=== PATIENT | male | born 1980 | race Caucasian/White ===

== ENCOUNTER → 2017-07-26 17:33 | Outpatient (CLI) | payer OTHER, SELFPAY ==
--- NOTE | 2017-07-26 17:38 | CT_ITS ---
STUDY: CT CHEST WITHOUT CONTRAST REASON FOR EXAM: Male, 37 years old. Pulmonary nodule follow-up. RADIATION DOSAGE (If Supplied By Facility): CTDIvol = ( 19.11 ) mGy, DLP = ( 708.19 ) mGycm TECHNIQUE: Transaxial imaging was performed without the administration of intravenous contrast material. Individualized dose optimization techniques were used for this CT. COMPARISON: CT of the abdomen and pelvis 02/18/2017. FINDINGS: Normal lung volumes. Stable appearance of a 9 mm noncalcified nodule on the right lower lobe on image 162 with a few adjacent extremely tiny satellite nodules. Findings are still indeterminant. No other nodules infiltrates or acute abnormalities are found. No effusions. Normal heart and pericardium. Normal mediastinum. Normal hilar regions. Normal unenhanced pulmonary arteries. Normal aorta arch and descending thoracic aorta. Normal osseous structures. There is no demonstrated abnormality of the visualized upper abdomen. CT/Chest without Contrast IMPRESSION: Stable indeterminate nodule in the right lower lobe and otherwise normal chest CT. Suggest follow-up in 6 months. Electronically Signed: Spenser Brewer MD at 10:29 EDT , Service support ,
== END ==
PROVIDERS: Family Provider Family Medicine; PCP Family Medicine; Visit Provider Family Medicine
DX: R91.1 Solitary pulmonary nodule (principal)
CPT/HCPCS: 71250

== ENCOUNTER → 2018-03-18 17:40 | Outpatient (CLI) | payer OTHER, SELFPAY ==
--- NOTE | 2018-03-18 17:43 | CT_ITS ---
STUDY: CT CHEST WITHOUT CONTRAST REASON FOR EXAM: Male, 37 years old. Follow-up lung nodule RADIATION DOSAGE (If Supplied By Facility): CTDIvol = ( 18.76 ) mGy, DLP = ( 750.17 ) mGycm TECHNIQUE: Transaxial imaging was performed without the administration of intravenous contrast material. Individualized dose optimization techniques were used for this CT. COMPARISON: 07/26/[address], 02/18/[address] FINDINGS: Stable 8 x 7 mm nodule in the right lower lobe on image 82 of series 4. There is no demonstrated pleural abnormality. Normal heart and pericardium. Normal mediastinum. Normal hilar regions. Normal unenhanced pulmonary arteries. Normal aorta arch and descending thoracic aorta. Normal osseous structures. There is no demonstrated abnormality of the visualized upper abdomen. CT/Chest without Contrast IMPRESSION: Stable 8 mm nodule in the right lower lobe. Consider 12 month follow-up to ensure 2 years of stability. If 2 years of stability can be documented, no further follow-up would be necessary after that time. Electronically Signed: Marin Pittman MD at 4:04 EST Tel , Service support ,
== END ==
PROVIDERS: Family Provider Family Medicine; PCP Family Medicine; Referring Provider Family Medicine; Visit Provider Family Medicine
DX: R91.1 Solitary pulmonary nodule (principal)
CPT/HCPCS: 71250

== ENCOUNTER → 2019-03-25 08:43 | Outpatient (CLI) | payer OTHER, SELFPAY ==
--- NOTE | 2019-03-25 08:50 | CT_ITS ---
STUDY: CT CHEST WITHOUT CONTRAST REASON FOR EXAM: Male, 38 years old. Pulmonary nodule. RADIATION DOSAGE (If Supplied By Facility): CTDIvol = ( 18.17 ) mGy, DLP = ( 685.61 ) mGycm TECHNIQUE: Transaxial imaging was performed without the administration of intravenous contrast material. Multiplanar coronal and sagittal images were reformatted. Individualized dose optimization techniques were used for this CT. COMPARISON: None. FINDINGS: Redemonstrated is right lower lobe 8 mm pulmonary nodule, stable in size in the interval. No new nodules identified. Remainder of the lungs are normal. There is no demonstrated pleural abnormality. Normal heart and pericardium. Normal mediastinum. Normal hilar regions. Normal unenhanced pulmonary arteries. Normal aorta arch and descending thoracic aorta. Normal osseous structures. There is diffuse fatty liver. Otherwise there is no demonstrated abnormality of the visualized upper abdomen. CT/Chest without Contrast IMPRESSION: Stable right lower lobe pulmonary nodule, first identified on 02/18/2017. Given stability, no further follow-up recommended. Diffuse fatty liver. No acute cardiopulmonary process seen. Electronically Signed: Sabiha Hendrix MD at 4:59 EST , Service support ,
== END ==
PROVIDERS: Family Provider Family Medicine; PCP Family Medicine; Referring Provider Family Medicine; Visit Provider Family Medicine
DX: R91.1 Solitary pulmonary nodule (principal)
CPT/HCPCS: 71250

== ENCOUNTER 2019-10-18 15:59 | Inpatient (IN) | payer OTHER, SELFPAY ==
[2019-10-18] VITALS (12 sets, daily range): BP systolic 111–137; BP diastolic 54–78; PULSE 76–102; RESP 15–24; TEMP 36.7–38.4; O2SAT 93–97; BMI 40.0; BMI 39.2
--- NOTE | 2019-10-18 16:30 | EKG12_ITS ---
Test Reason : Blood Pressure : / mmHG Vent. Rate : 096 BPM Atrial Rate : 096 BPM P-R Int : 134 ms QRS Dur : 080 ms QT Int : 334 ms P-R-T Axes : 027 031 -05 degrees QTc Int : 421 ms Normal sinus rhythm Nonspecific T wave abnormality Abnormal ECG Confirmed by MAR BRAUN, TAMICA ([id number]), editorial manager OPAL MARIE ([id number]) on 10/23/2019 1:55:01 PM Referred By: IAN Confirmed By:ALEXY MANUEL MD
--- NOTE | 2019-10-18 16:36 | NURSING ---
NO OLD EKGS
--- NOTE | 2019-10-18 16:55 | RAD_ITS ---
STUDY: X-RAY CHEST REASON FOR EXAM: Male, 39 years old. LAST WEDNESDAY PT STARTED HAVING SOB, FEVER, CHILLS,LOSS OF SMELL AND TASTE, D/N/V. DX WITH COVID ON WEDNESDAY. NOW SYMPTOMS WORSE TECHNIQUE: Single AP portable view of the chest. COMPARISON: None. FINDINGS: Small irregular infiltrates are present in the bilateral lower lobes. There is no demonstrated pleural abnormality. Normal size heart. Normal mediastinum and ayla. Normal visualized pulmonary arteries. Normal visualized aortic arch and descending thoracic aorta. Normal visualized thoracic spine. Normal visualized ribs, clavicles, and shoulders. There is no demonstrated abnormality of the visualized soft tissue structures of the upper abdomen. RAD/Chest 1 View (Portable) IMPRESSION: Small irregular infiltrates in the bilateral lower lobes Electronically Signed: Orlando Tejada MD at 17:29 EDT , Service support ,
[2019-10-18 17:05] LABS: Absolute Lymphocyte Count 1.44 X10^3/uL (0.83-4.51); Absolute Neutrophil Count 3.6 X10^3/uL (2.0-7.7); Basophil# 0.01 X10^3/uL; Basophil% 0.2 % (0-1); Eosinophil# 0.01 X10^3/uL; Eosinophils% 0.2 % (0-5); Hemoglobin 15.1 g/dL (13.0-16.5); Lymphocyte # 1.44 X10^3/ul (4.0); Lymphocyte % 26.9 % (19-41); Mean Corp Hgb Conc 32.8 g/dL (32-36); Mean Corpuscular Hgb 28.4 pg (27.0-32.0); Mean Corpuscular Volume 86.6 fL (80-94); Monocyte# 0.29 X10^3/uL; Monocyte% 5.4 % (0-10); NRBC Flagged by Analyzer 0 % (0-5); Neutrophil # 3.58 X10^3/uL (2.7-7.7); Neutrophil % 66.9 % (47-70); POSITIVE MORPHOLOGY YES; Platelet Count 157 K/mm3 (150-450); RBC Distribution Width SD 40.7 fl (35.1-43.9); Red Blood Count 5.31 M/mm3 (4.6-6.2); White Blood Count 5.4 K/mm3 (4.4-11.0)
--- NOTE | 2019-10-18 17:05 | ED.VISSUMM ---
- ER Visit Summary Date of Service: 10/18/19 Chief Complaint: Shortness of breath History of Present Illness: The patient is a 39 M with increasing shortness of breath. Symptoms started 7 days ago. He tested positive for COVID-19 6 days ago. He reports increasing shortness of breath, fever, chills, decreased smell and taste, nausea, vomiting, and diarrhea. He has a history of hypertension and a prior history of smoking. Physical Examination: Afebrile and vital signs unremarkable except for heart rate of 102 and respiratory rate of 24. 95% on room air. Patient appears unwell but not toxic or in distress. He is alert and oriented, breathing on room air while wearing a mask. Heart is regular. No respiratory distress. Extremities nontender with no edema. Skin normal in color. Test Results: EKG shows sinus rhythm at a rate of 96 with no signs of ischemia or infarction pattern. Chest x-ray and labs are pending. Emergency Department Course and Treatment: Coronavirus precautions were maintained. The patient has an exacerbation of his COVID-19 illness. Work-up as above. He is not requiring oxygen. Will reassess. Patient's lab work was all fairly reassuring. His EKG was unremarkable. His x-ray showed bilateral lower lobe infiltrates. He ambulated and only dropped to 91% on room air, but appears very short of breath. I suspect that he will continue to worsen and may require oxygen soon. Will contact the hospitalist. Treatment Plan: As above Disposition: Admission Impression: COVID-19 infection Bilateral pneumonia This note was generated with [employer] dictation software. It may contain incorrect words, spelling, and punctuation that were not noted in review of the chart prior to signing ED Disposition - Plan for ED Patient: Referrals: Sebastien Laguerre DO [Primary Care Provider] -
[2019-10-18 17:07] LABS: Differential Indicated SCAN CRITERIA MET
[2019-10-18 17:19] LABS: Lactic Acid 1.6 mmol/L (0.4-1.9)
[2019-10-18 17:20] LABS: AST(SGOT) 32 U/L (15-37); Alanine Aminotransfer ALT/SGPT 65 U/L (16-61); Albumin, Serum 3.8 g/dL (3.2-5.0); Alkaline Phosphatase 56 U/L (45-117); Anion Gap 9 (5-15); BUN 14 mg/dL (7-18); BUN/Creat Ratio 14.2 RATIO (10-20); Calcium,Total 8.7 mg/dL (8.5-10.1); Chloride 102 mmol/L (98-107); Creatinine, Serum 0.98 mg/dL (0.70-1.30); EST Glomerular Filtration Rate 90 mL/min (>60); Est Glom Filt Rate - Afr Amer 109 mL/min (>60); Estimated Creatinine Clearance 104.49 ml/min; Globulin 3.9 g/dL (2.2-4.2); Glucose 108 mg/dL (74-106); Potassium 3.8 mmol/L (3.5-5.1); Protein, Total 7.7 g/dL (6.4-8.2); Prothrombin Time (Protime)PT. 12.3 SECONDS (11.7-14.9); Sodium Level 137 mmol/L (136-145)
[2019-10-18 17:21] LABS: Partial Thromboplast Time 29.4 Seconds (24.1-36.2)
[2019-10-18] MEDS: 0.9% Normal Saline 1,000 ML 999 ML IV (17:28)
[2019-10-18] MEDS: Ketorolac 15 MG/ML Vial IV (17:28)
[2019-10-18 17:51] LABS: Platelet Estimate ADEQUATE (ADEQ); Red Cell Morphology NORM C+C NORMAL (NORM C&C)
--- NOTE | 2019-10-18 18:14 | HP.PCM_ITS ---
History of Present Illness Date of Admission: 10/18/19 Chief Complaint: general malaise, COVID 19 infection The patient is a 39 year old M with past medical history of hypertension. He was admitted through the ED on 10/18/2019 with a complaint of generalized malaise, fever and cough as well as chills. Patient was recently diagnosed with COVID-19 infection and has been isolating at home. However he states he just feels he is getting worse with worsening generalized pain, fever, chills and coughing which is productive of clear sputum. He is also had some abdominal pain, diarrhea and vomiting. Review of symptoms otherwise negative. His symptoms were not improving so he decided to come into the ED. On review, vitals were significant for temperature of 101 Fahrenheit, blood pressure 121/68, pulse rate of 88 and respiratory to 15. Pulse ox was 94% on room air. Chemistry essentially unremarkable. CBC showed WBC of 5.4 with hemoglobin of 15.1 and platelets of 157. Chest x-ray showed small irregular infiltrates in the bilateral lower lobes. He has been admitted to be managed for COVID-19 infe ction. [] Past Medical History Allergies Penicillins Allergy (Verified 10/18/19 16:03) Rash Home Medications: Ambulatory Orders Medication Instructions Recorded Losartan Potassium [Cozaar] 50 mg PO DAILY 02/18/17 Acetaminophen [Tylenol Extra 500 - 1,000 mg PO Q6H PRN PRN 10/18/19 Strength] Albuterol Sulfate [Albuterol 2 puff IH Q6H PRN PRN 10/18/19 Sulfate HFA] Butalbit/Acetamin/Caff/Codeine 1 cap PO Q4H PRN PRN 10/18/19 [Fioricet-Cod 04-665-17-30 Cap] Ibuprofen [Advil] 600 - 800 mg PO DAILY PRN PRN 10/18/19 Psychiatric History: No pertinent psych hx Lives: With Family Smoking Status: Former smoker Alcohol: None Drugs: None - *Family History Maternal History Items: Heart Disease, Hypertension Paternal History Items: Heart Disease, Hypertension Review of Systems Constitutional: Reports: Anorexia, Chills, Fever, Malaise, Weakness, Fatigue. Denies: Weight Change Eyes: Denies: Blurred vision HEENT: Denies: Head Aches, Sinus Congestion, Sinus Drainage Cardiovascular: Denies: Chest Pain, Palpitations Respiratory: Reports: Cough, Shortness of Breath, Shortness of breath at rest, Shortness of breath upon exertion, Sputum production. Denies: Pleuritic Pain, Wheezing Gastrointestinal: Reports: Diarrhea, Nausea, Vomiting. Denies: Abdominal Pain Genitourinary: Denies: Dysuria Musculoskeletal: Denies: Joint Pain, Joint Tenderness Skin: Denies: Rash, Wounds Neurological: Denies: Numbness, Tingling, Focal weakness Psychiatric: Denies: Anxiety, Depression, Homicidal Ideations, Suicidal Ideations Hematologic/ Lymphatic: Denies: Easy Bruising, Easy Bleeding VTE Information - Inpt Only VTE Present on Admission: No VTE Pharm Prophylaxis ordered?: Yes - Physical Exam Vitals/I&O's: Vital Signs Temp Pulse Resp BP Pulse Ox 101.0 F H 89 21 H 121/68 H 95 10/18/19 17:32 10/18/19 17:30 10/18/19 17:30 10/18/19 17:30 10/18/19 17:30 Oxygen Delivery Method Room Air Weight: 279 lb 1.683 oz Body Mass Index (BMI) 40.0 General: Alert, Oriented x3, Cooperative, - - looks uncomfortable HEENT: Atraumatic, PERRLA, EOMI, Normocephalic Oral: Dry Mucosa Neck: Supple, No JVD, Negative Carotid Bruits Lungs: - - decreased breath sounds bibasally; few crackles in mid and lower lung aquino. Cardiovascular: Regular rate, Regular Rhythm, Normal S1, Normal S2, No murmurs Abdomen: Bowel Sounds Present, Soft, Non Tender Extremities: No clubbing, No cyanosis, No edema, Capillary Refill Less than 3 Seconds Skin: No rashes, No breakdown Musculoskeletal: No Tenderness to Palpation of Joints or Extremities Lymphatic: No Cervical, Supraclavicular, or Inguinal Adenopathy Neurological: Cranial nerves II-XII grossly intact, Neuro grossly intact, Motor Exam 5/5 strength throughout Psych/Mental Status: Restless, Alert and oriented to time, place, person, mood and affect Laboratory Results 10/18/19 16:00: Sodium 137, Potassium 3.8, Chloride 102, Carbon Dioxide 26.0, Anion Gap 9, BUN 14, Creatinine 0.98, Estim Creat Clear Calc 104.49, Est GFR (MDRD) Af Amer 109, Est GFR (MDRD) Non-Af 90, BUN/Creatinine Ratio 14.2, Glucose 108 H, Calcium 8.7, Total Bilirubin 0.90, AST 32, ALT 65 H, Alkaline Phosphatase 56, Troponin I < 0.015, Total Protein 7.7, Albumin 3.8, Globulin 3.9, Albumin/Globulin Ratio 1.0 10/18/19 16:00: WBC 5.4, RBC 5.31, Hgb 15.1, Hct 46.0, MCV 86.6, MCH 28.4, MCHC 32.8, RDW Std Deviation 40.7, RDW Coeff of Paulette 13.0, Plt Count 157, MPV 11.0, Immature Gran % (Auto) 0.400, Neut % (Auto) 66.9, Lymph % (Auto) 26.9, Wheeler % (Auto) 5.4, Eos % (Auto) 0.2, Baso % (Auto) 0.2, Absolute Neuts (auto) 3.6, Absolute Lymphs (auto) 1.44, Nucleated RBC % 0, Platelet Estimate ADEQUATE, RBC Morphology NORM C+C 10/18/19 16:00: PT 12.3, INR 1.0, APTT 29.4 10/18/19 16:00: Lactic Acid 1.6 Diagnostic Data Chest X-Ray 10/18/19 16:55 IMPRESSION: Small irregular infiltrates in the bilateral lower lobes Electronically Signed: Orlando Tejada MD at 17:29 EDT , Service support , Assessment/Plan 39-year-old female admitted with a complaint of generalized malaise. 1. Acute COVID 19 infection * Admit to COVID unit. * He was diagnosed with COVID-19 on 10/12/2019. Has more generalized malaise. * hydrate with IVF, tylenol prn for pain * lactic acid was not elevated * CXR showed small irregular infiltrates in the bilateral lower lobes * will hold off on antibiotics for now as he doesnt have any white cell count, and is not tachypneic; does have a fever but this is likely due to the viral infection. * * 2. Hypertension: on losartan DVT prophylaxis: lovenox 40mg bid; D dimer ordered, if elevated, will fully anticoagulate as needed. Code status: full code * Patient counseled extensively about different types of CODE STATUS including full code, DNR CCA and DNR CCA. Patient elects to be full code. Total [id number] time 16 minutes. Inpatient E&M: 59855 Init Hosp L3
[2019-10-18 21:19] LABS: D-Dimer Quantitative (DVT/PE) 0.55 FEU/ug/m (0.27-0.49)
[2019-10-18] MEDS: 0.9% Normal Saline 1,000 ML 150 ML IV (21:42)
[2019-10-18] MEDS: Acetaminophen/Butalbital/Caffe 1 Tablet PO (21:42)
[2019-10-18] MEDS: Ibuprofen 600 MG Tablet PO (21:42)
[2019-10-18] MEDS: Enoxaparin 40 MG/0.4 ML Syringe SC (21:44)
[2019-10-19 03:04] VITALS: PULSE 62
[2019-10-19 03:36] VITALS: BP 101/73; PULSE 72; RESP 18; TEMP 36.6; O2SAT 94
[2019-10-19] MEDS: 0.9% Saline Lock 10 ML Syringe IV (03:37)
[2019-10-19] MEDS: Acetaminophen 500 MG Tablet PO (03:37)
[2019-10-19] MEDS: 0.9% Normal Saline 1,000 ML 150 ML IV (03:38)
[2019-10-19 04:02] LABS: Absolute Neutrophil Count 2.9 X10^3/uL (2.0-7.7); Basophil# 0.01 X10^3/uL; Basophil% 0.2 % (0-1); Hematocrit 42.4 % (40-54); Hemoglobin 13.9 g/dL (13.0-16.5); Lymphocyte % 38.5 % (19-41); Mean Corp Hgb Conc 32.8 g/dL (32-36); Mean Corpuscular Hgb 28.8 pg (27.0-32.0); Mean Platelet Vol. 10.8 fl (6.2-12.0); Monocyte# 0.25 X10^3/uL; Monocyte% 4.8 % (0-10); NRBC Flagged by Analyzer 0 % (0-5); Neutrophil # 2.91 X10^3/uL (2.7-7.7); Neutrophil % 56.1 % (47-70); Platelet Count 149 K/mm3 (150-450); RBC Distribution Width CV 13.2 % (11.6-14.6); RBC Distribution Width SD 42.5 fl (35.1-43.9); Red Blood Count 4.82 M/mm3 (4.6-6.2); White Blood Count 5.2 K/mm3 (4.4-11.0)
[2019-10-19 04:15] LABS: D-Dimer Quantitative (DVT/PE) 0.66 FEU/ug/m (0.27-0.49)
[2019-10-19 04:21] LABS: Alkaline Phosphatase 48 U/L (45-117); Anion Gap 9 (5-15); BUN 13 mg/dL (7-18); BUN/Creat Ratio 13.3 RATIO (10-20); Calcium,Total 8.1 mg/dL (8.5-10.1); Chloride 105 mmol/L (98-107); Creatinine, Serum 0.98 mg/dL (0.70-1.30); EST Glomerular Filtration Rate 91 mL/min (>60); Est Glom Filt Rate - Afr Amer 110 mL/min (>60); Estimated Creatinine Clearance 104.49 ml/min; Ferritin 1297 ng/mL (26-388); Glucose 99 mg/dL (74-106); Potassium 3.8 mmol/L (3.5-5.1); Sodium Level 140 mmol/L (136-145)
[2019-10-19 07:04] VITALS: PULSE 79
[2019-10-19 09:00] VITALS: O2SAT 96
[2019-10-19] MEDS: Losartan Potassium 50 MG Tablet PO (09:37)
[2019-10-19] MEDS: Enoxaparin 40 MG/0.4 ML Syringe SC (09:37)
[2019-10-19 09:44] VITALS: BP 159/99; PULSE 89; RESP 18; TEMP 37.8; O2SAT 95
[2019-10-19] MEDS: Acetaminophen/Butalbital/Caffe 1 Tablet PO (09:48)
[2019-10-19] MEDS: guaiFENesin 10 ML UDC (200MG/10ML) 20 ML PO (09:48)
--- NOTE | 2019-10-19 10:46 | CASEMGMT ---
RN CM Assessment Note- COVID Positive Introduced role of CM to patient via phone to room. Pt is awake alert and able to participate in assessment. Pt states he lives with his independently. She is self-isolating @ home. Pt states they have persons to assist with bring groceries, medications etc if needed to allow them to remain isolated. Will f/u with physicians via phone interviews. No concerns re: dc home @ this time. Diagnosis: COVID 19 infection PCP: Dr. Sebastien Laguerre Specialists: none Insurance: [employer] Preferred Pharmacy: [facility] Prescription Benefit: yes LNOK: Living Arrangements: Lives independently with his . No concerns on dc. Tranportation: drives DME: none Patient DC Goals: Home DC Plan: Home on dc. Pt will received COVID-19 dc instructions. Reviewed this will include self-isolation until cleared by his physician, and for pt to have someone pick and shovel worker his medications/groceries, etc until cleared to leave home. CM available for discharge planning coordination. Contact CM for any concerns/needs that may arise. Maura PERRYN RN ACM
--- NOTE | 2019-10-19 11:15 | DCINST_ITS ---
You will use the following diet at home:: No restrictions Your food should be the consistency of: Regular Call your doctor if you observe: Fever of 101 or Higher, Shortness of breath Additional Instructions: Self isolate at home until 10/24, as long as you are not having fevers. Around family, have you and them wear masks when interating. Minimize direct interaction as much as possible while ill. Allergies/Adverse Reactions: Allergies Penicillins Allergy (Verified 10/18/19 16:03) Rash Medications to take at Discharge Losartan Potassium [Cozaar] 50 mg PO DAILY 02/18/17 Acetaminophen [Tylenol] 500 - 1,000 mg PO Q6H PRN PRN 10/18/19 Albuterol Sulfate [Albuterol Sulfate HFA] 2 puff IH Q6H PRN PRN 10/18/19 Butalbit/Acetamin/Caff/Codeine [Fioricet-Cod 93-414-19-30 Cap] 1 cap PO Q4H PRN PRN 10/18/19 Ascorbic Acid [Vitamin C] 1,000 mg PO DAILY #1 tablet.er 10/19/19 Ibuprofen [Advil] 600 mg PO Q6H PRN #0 10/19/19 The following prescriptions were given: Ascorbic Acid [Vitamin C] 1,000 mg PO DAILY #1 tablet.er Primary Care Physician: Sebastien Laguerre DO [Primary Care Provider] - Within 2 Weeks Test Results: Test results from this visit will be discussed in further detail at your follow- up appointment, if applicable. Proposed Discharge Date: 10/19/19
--- NOTE | 2019-10-19 11:18 | DS.PCM_ITS ---
Discharge Date and Diagnosis Date of Admission: 10/18/19 Date of Discharge: 10/19/19 - Primary Discharge Diagnosis Acute Problems: COVID-19 Hospital Course and Treatment Imaging Results: Clinical Impression(s) from Imaging Studies Chest X-Ray 10/18/19 16:55 IMPRESSION: Small irregular infiltrates in the bilateral lower lobes Electronically Signed: Orlando Tejada MD at 17:29 EDT , Service support , Operations: None Procedures: None Summary of Care Provided: The patient is a 39 year old M presents with general malaise. Had been sick since 10 October. Where he has been diagnosed with COVID-19. Just was not feeling well and was still having fevers. Patient was brought into the hospital and monitored. Overnight, patient had no decline in his medical condition though he was having continued fevers. Discussed with the patient that his symptoms may last for weeks but medically he is stable for discharge as he is not declined whatsoever. Recommended taking acetaminophen and ibuprofen and alternating those. Told him that there is no treatment for mild to moderate illnesses such as this. Did state that he could take vitamin C which may not help but would not cause him any harm. Did advise him to minimize interaction with family and when he has to at home, to wear a mask and for them to wear a mask as well. Recommend patient isolate at home until the which would be 2 weeks after the initiation of his symptoms unless he is still sick. [] - Physical Exam Vitals/I&O's: Vital Signs Temp Pulse Resp BP Pulse Ox 37.8 C H 89 18 159/99 H 95 10/19/19 09:44 10/19/19 09:44 10/19/19 09:44 10/19/19 09:44 10/19/19 09:44 Oxygen Delivery Method Room Air Weight: 124 kg Body Mass Index (BMI) 39.2 Intake and Output for Last 24 Hours 10/17/19 10/18/19 10/19/19 23:59 23:59 23:59 Intake Total 1640 / 1640 2040.0 / 2040.0 Balance 1640 / 1640 2040.0 / 2040.0 General: Alert, No apparent distress HEENT: Atraumatic, Normocephalic Oral: Moist Mucosa, No Gingival or Mucosal Lesions/ Ulcerations Neck: No Nodes, Thyroid Normal Size and Texture Lungs: Clear to auscultation, Normal air movement, No rhonchi, No wheeze Cardiovascular: Regular rate, Regular Rhythm, Normal S1, Normal S2 Abdomen: Bowel Sounds Present, Soft, Non Tender, Non-Distended Extremities: No edema, No Calf Tenderness Psych/Mental Status: Normal Affect, Appropriate Laboratory Results 10/18/19 16:00: Sodium 137, Potassium 3.8, Chloride 102, Carbon Dioxide 26.0, Anion Gap 9, BUN 14, Creatinine 0.98, Estim Creat Clear Calc 104.49, Est GFR (MDRD) Af Amer 109, Est GFR (MDRD) Non-Af 90, BUN/Creatinine Ratio 14.2, Glucose 108 H, Calcium 8.7, Total Bilirubin 0.90, AST 32, ALT 65 H, Alkaline Phosphatase 56, Troponin I < 0.015, Total Protein 7.7, Albumin 3.8, Globulin 3.9, Albumin/Globulin Ratio 1.0 10/18/19 16:00: WBC 5.4, RBC 5.31, Hgb 15.1, Hct 46.0, MCV 86.6, MCH 28.4, MCHC 32.8, RDW Std Deviation 40.7, RDW Coeff of Paulette 13.0, Plt Count 157, MPV 11.0, Immature Gran % (Auto) 0.400, Neut % (Auto) 66.9, Lymph % (Auto) 26.9, Gonzales % (Auto) 5.4, Eos % (Auto) 0.2, Baso % (Auto) 0.2, Absolute Neuts (auto) 3.6, Absolute Lymphs (auto) 1.44, Nucleated RBC % 0, Platelet Estimate ADEQUATE, RBC Morphology NORM C+C 10/18/19 16:00: PT 12.3, INR 1.0, APTT 29.4 10/18/19 16:00: Lactic Acid 1.6 10/18/19 20:50: D-Dimer Quant (PE/DVT) 0.55 H* 10/19/19 03:50: WBC 5.2, RBC 4.82, Hgb 13.9, Hct 42.4, MCV 88.0, MCH 28.8, MCHC 32.8, RDW Std Deviation 42.5, RDW Coeff of Paulette 13.2, Plt Count 149 L, MPV 10.8, Immature Gran % (Auto) 0.400, Neut % (Auto) 56.1, Lymph % (Auto) 38.5, Gonzales % (Auto) 4.8, Eos % (Auto) 0.0, Baso % (Auto) 0.2, Absolute Neuts (auto) 2.9, Absolute Lymphs (auto) 2.00, Nucleated RBC % 0 10/19/19 03:50: Sodium 140, Potassium 3.8, Chloride 105, Carbon Dioxide 26.0, Anion Gap 9, BUN 13, Creatinine 0.98, Estim Creat Clear Calc 104.49, Est GFR (MDRD) Af Amer 110, Est GFR (MDRD) Non-Af 91, BUN/Creatinine Ratio 13.3, Glucose 99, Calcium 8.1 L, Ferritin 1297 H, Alkaline Phosphatase 48, Troponin I < 0.015, C-React Prot Ext Range 54.10 H 10/19/19 03:50: D-Dimer Quant (PE/DVT) 0.66 H* Current Medications Acetaminophen (Tylenol) 500 mg PO Q6H PRN PRN PRN Reason: Pain 1-10 or Fever Last Admin: 10/19/19 03:37 Dose: 500 mg Documented by: Acetaminophen/Butalbital/Caffeine (Fioricet) 1 tablet PO Q4H PRN PRN PRN Reason: HEADACHE Last Admin: 10/19/19 09:48 Dose: 1 tablet Documented by: Albuterol Sulfate (Ventolin Aerosols) 2.5 mg INHALATION Q2H PRN PRN PRN Reason: Shortness of Breath/Wheezing Dextrose (D50w Syringe) 0 gm IV X1 PRN; Protocol PRN Reason: Hypoglycemia Enoxaparin Sodium (Lovenox) 40 mg SC BID RONNY Last Admin: 10/19/19 09:37 Dose: 40 mg Documented by: Glucagon () 1 mg IM .X1 PRN PRN Reason: Hypoglycemia Guaifenesin (Robitussin) 20 ml PO Q4H PRN PRN PRN Reason: COUGH Last Admin: 10/19/19 09:48 Dose: 20 ml Documented by: Sodium Chloride () 250 mls @ 15 mls/hr IV .[id number] PRN PRN Reason: Saline Flush Sodium Chloride () 250 mls @ 15 mls/hr IV .[id number] PRN PRN Reason: Additional IVPB Infusion Ibuprofen (Motrin) 600 mg PO DAILY PRN PRN PRN Reason: Pain 1-10 or Fever Last Admin: 10/18/19 21:42 Dose: 600 mg Documented by: Losartan Potassium (Cozaar) 50 mg PO DAILY RONNY Last Admin: 10/19/19 09:37 Dose: 50 mg Documented by: Ondansetron HCl (Zofran) 4 mg IV Q8H PRN PRN PRN Reason: NAUSEA/VOMITING Sodium Chloride () 10 - 40 ml IV UD PRN PRN Reason: SALINE FLUSH Last Admin: 10/19/19 03:37 Dose: 20 ml Documented by: Discharge Diet: No Restrictions Discharge Activity: Return to Normal Activity Call your doctor if you observe: Fever of 101 or Higher, Shortness of breath Home Medications: Medications to take at Discharge Losartan Potassium [Cozaar] 50 mg PO DAILY 02/18/17 Acetaminophen [Tylenol] 500 - 1,000 mg PO Q6H PRN PRN 10/18/19 Albuterol Sulfate [Albuterol Sulfate HFA] 2 puff IH Q6H PRN PRN 10/18/19 Butalbit/Acetamin/Caff/Codeine [Fioricet-Cod 43-877-95-30 Cap] 1 cap PO Q4H PRN PRN 10/18/19 Ascorbic Acid [Vitamin C] 1,000 mg PO DAILY #1 tablet.er 10/19/19 Ibuprofen [Advil] 600 mg PO Q6H PRN #0 10/19/19 Following Prescrptions Were Given to Patient: Ascorbic Acid [Vitamin C] 1,000 mg PO DAILY #1 tablet.er Primary Care Physician: Sebastien Laguerre DO [Primary Care Provider] - Within 2 Weeks Disposition: Home Minutes spent on discharge:: 28 Patient Condition:: Good Medical Necessity - Tobacco Use Smoking Status: Former smoker Tobacco Use: Cigarettes Meaningful Use Info Meaningful Use Diagnoses (Choose all that apply): None applicable OBSV E&M: 73793 Observation care discharge
[2019-10-19 11:23] VITALS: TEMP 37.8
[2019-10-19] MEDS: Ibuprofen 600 MG Tablet PO (11:26)
--- NOTE | 2019-10-19 11:34 | NT.THERAPY_ITS ---
Nutrition Therapy Report - History Nutrition Services has been consulted to:: Manage nutrient details of diet order Current diet / nutrition support order:: cardiac/low cholesterol - Anthropometric Measurements Height:: 5 ft 10 in Weight:: 124 kg Body Mass Index (BMI):: 39.2 - Relevant Labs Relevant Labs:: Plt Count 149 K/mm3 (150-450) L 10/19/19 03:50 D-Dimer Quant (PE/DVT) 0.66 FEU/ug/m (0.27-0.49) H* 10/19/19 03:50 Glucose 108 mg/dL (74-106) H 10/18/19 16:00 Calcium 8.1 mg/dL (8.5-10.1) L 10/19/19 03:50 Ferritin 1297 ng/mL (26-388) H 10/19/19 03:50 ALT 65 U/L (16-61) H 10/18/19 16:00 C-React Prot Ext Range 54.10 mg/L (0.0-3.0) H 10/19/19 03:50 - Assessment Food / Nutrition-Related History:: Currently in isolation d/t COVID-19. Spoke w/ pt over phone. Pt reports poor PO intake and appetite x 1 week d/t COVID-19. States he had abd pain, diarrhea, and emesis [employer]. None since admission. UBW 295#. CBW 273.4#- 21.6#/7.3% wt loss x 1 week, significant for acute malnutrition. Describes poor PO intake this AM at breakfast. - Nutrition Diagnosis Problem / Etiology / Signs & Symptoms (PES):: Acute, severe malnutrition related to COVID-19 as evidenced by 21.6#/7.3% wt loss x 1 week, estimated PO intake <50% intake >5 days. Evidence of Malnutrition Exists:: Yes Severe PCM:: Acute Illness - Nutrition Intervention Nutrition Prescription:: 9570-3521 calories, 90-100 g protein/day - Food / Nutrient Delivery Interventions Summary of nutrition intervention:: Will change diet to regular d/t malnutriton, ensure enlive 120mL 3x/d w/ meals Nutrition support ordered as / adjusted to:: regular diet; ensure w/ meals Nutrition education provided?: No - MNT Monitoring Further MNT monitoring and evaluation required?: Yes MNT Follow-up in:: 3-5 days
[2019-10-19 11:36] VITALS: BMI 39.2
== END 2019-10-19 14:00 | disposition home or self-care (01) | DRG 179 ==
LOC: ED 16:19 → ICU 18:34
PROVIDERS: Admitting Provider Student in an Organized Health Care Education/Training Program; Emergency Provider Emergency Medicine; PCP Family Medicine
DX: U07.1 COVID-19 (principal); I10 Essential (primary) hypertension; Z88.0 Allergy status to penicillin; Z87.891 Personal history of nicotine dependence; Z79.899 Other long term (current) drug therapy
CPT/HCPCS: 71045; 80048; 80053; 82728; 83605; 84075; 84484; 85025; 85379; 85610; 85730; 86140; 87040; 93005; 97802; 99285; J7030; A4216

== ENCOUNTER 2021-08-22 22:17 | Emergency (ER) | payer OTHER, SELFPAY ==
[2021-08-22 22:18] VITALS: BP 141/96; PULSE 101; RESP 16; TEMP 36.4; O2SAT 95; BMI 40.1
[2021-08-22 22:36] LABS: Bedside Glucose 391 mg/dL (74-106)
--- NOTE | 2021-08-22 22:41 | EDS_ITS ---
HPI History of Present Illness Chief Complaint: Hyperglycemia Informant: patient Onset/Context/Timing Onset: Weeks (2) Context: Gradual Onset Timing: Continuous Quality: ppolyuria & polydipsia Current Severity: Moderate Maximum Severity: Moderate Worsened by: nothing Relieved by: nothing, I can't seem to drink enough fluids Associated Symptoms Associated Symptoms: none Narrative Narrative: Patient has been having urinary frequency and polydipsia for the last 2 weeks, diabetes runs in his family so his bought a blood sugar checking kit today and checked his blood sugar and it was around 515, they talk to a family member who advised that he come to the emergency department given that it is the weekend. He denies any other symptoms. He states he worked out in the yard today and had no problems. He has just been urinating a lot without any dysuria or hematuria or other systemic symptoms or abdominal pain, and trying to drink lots of fluids as a result of feeling very thirsty. No known history of diabetes. [facility] Medical History Hypertension Home Medications losartan [Cozaar] 50 mg PO DAILY 02/18/17 [History Last Taken 10/18/19] metformin 500 mg PO BID #60 tab 08/23/21 [Rx Last Taken Unknown] Allergy/AdvReac Type Severity Reaction Status Date / Time Penicillins Allergy Rash Verified 08/22/21 22:20 Social History Smoking Status: Former smoker ROS ROS ED Constitutional Constitutional ED: Denies chills or fever(s) Eyes Eyes: Denies change in vision or diplopia ENT ENT ED: Denies rhinorrhea or sore throat Cardiovascular Cardiovascular: Denies chest pain or palpitations Respiratory/Chest Respiratory/Chest: Denies cough or dyspnea Gastrointestinal Gastrointestinal: Denies abdominal pain, diarrhea, nausea or vomiting Genitourinary Genitourinary ED: Reports urinary frequency; Denies dysuria or hematuria Musculoskeletal Musculoskeletal: Denies back pain or neck pain Integumentary Denies abscess or rash Neurologic Neurologic: Denies headache(s), paresthesias or weakness Psychiatric Psychiatric: Denies anxiety or suicidal thoughts Endocrine Endocrinology: Reports as per HPI, polydipsia and polyuria; Denies cold intolerance, excessive sweating, flushing, heat intolerance or palpitations EXAM Physical Exam Const Vital Signs: 08/22/21 22:18 08/23/21 00:17 08/23/21 00:53 Temperature 97.6 F L Temperature Source Temporal Pulse Rate 101 H 90 Respiratory Rate 16 17 17 Blood Pressure 141/96 H 144/78 H Blood Pressure Mean 111 Pulse Ox 95 98 Oxygen Delivery Method Room Air Room Air Positive well nourished, well developed and obese General Appearance ED: well developed and NAD Nutritional Appearance: obese HEENT Reports moist mucous membranes normocephalic and atraumatic Eyes PERRL and EOMs intact bilaterally Neck full ROM and supple Resp normal respiratory effort and clear to auscultation bilaterally Cardio regular rate, regular rhythm and no murmurs Cardio Narrative: Borderline tachycardic with a heart rate around 100 GI non-tender and non-distended Auscultation: normoactive bowel sounds Palpation: soft Back/Spine no CVA tenderness General Back: other FROM Extremity normal to inspection General Extremety ED: Negative for edema, pulses abnormal or tenderness General Extremity: Negative for edema or pulses abnormal Neuro oriented x3, CN's II-XII intact bilaterally and no sensory deficits noted Sensorium / Orientation: awake and alert Motor Exam: strength 5/5 throughout Skin no rashes or lesions noted and no wounds MDM MDM MDM Narrative Medical decision making narrative: Patient was given a liter of fluid and initially lispro subcutaneous 8 units of insulin. Initially his blood sugar was 391, and after an hour or so this only came down to about 385. He was given more insulin in the IV, we did get his blood sugar to come down to the low 300s before it fully took effect. He was started on Metformin after discussing with his PCP and he will follow-up after the weekend. We will start him on 500 mg twice daily. Lab Data Attestation: I reviewed the patient's lab results. Labs: Laboratory Results - last 24 hr 08/22/21 08/22/21 08/22/21 22:27 22:32 22:32 WBC 6.4 RBC 5.87 Hgb 18.0 H* Hct 48.7 MCV 83.0 MCH 30.7 MCHC 37.0 H RDW Std Deviation 37.8 RDW Coeff of Paulette 12.5 Plt Count 234 MPV 11.5 Immature Gran % (Auto) 0.300 Neut % (Auto) 49.6 Lymph % (Auto) 39.2 [place] % (Auto) 8.1 Eos % (Auto) 1.7 Baso % (Auto) 1.1 H Absolute Neuts (auto) 3.2 Absolute Lymphs (auto) 2.51 Nucleated RBC % 0 Sodium Cancelled Potassium Cancelled Chloride Cancelled Carbon Dioxide Cancelled Anion Gap Cancelled BUN Cancelled Creatinine Cancelled Estim Creat Clear Calc Cancelled Est GFR (MDRD) Af Amer Cancelled Est GFR (MDRD) Non-Af Cancelled BUN/Creatinine Ratio Cancelled Glucose Cancelled Calcium Cancelled Urine Color Urine Clarity Urine pH Ur Specific [place] Urine Protein Urine Glucose (UA) Urine Ketones Urine Occult Blood Urine Nitrite Urine Bilirubin Urine Urobilinogen Ur Leukocyte Esterase Urine RBC Urine WBC Ur Squamous Epith Cells Urine Bacteria Urine Mucus POC Glucose 391 H 08/22/21 08/22/21 08/22/21 22:50 23:15 23:32 WBC RBC Hgb Hct MCV MCH MCHC RDW Std Deviation RDW Coeff of Paulette Plt Count MPV Immature Gran % (Auto) Neut % (Auto) Lymph % (Auto) [place] % (Auto) Eos % (Auto) Baso % (Auto) Absolute Neuts (auto) Absolute Lymphs (auto) Nucleated RBC % Sodium Cancelled 135 L Potassium Cancelled 4.2 Chloride Cancelled 100 Carbon Dioxide Cancelled 26.0 Anion Gap Cancelled 9 BUN Cancelled 16 Creatinine Cancelled 1.06 Estim Creat Clear Calc Cancelled 94.69 Est GFR (MDRD) Af Amer Cancelled 99 Est GFR (MDRD) Non-Af Cancelled 82 BUN/Creatinine Ratio Cancelled 15.1 Glucose Cancelled 439 H Calcium Cancelled 9.7 Urine Color Yellow Urine Clarity Clear Urine pH 5.0 Ur Specific [place] 1.015 Urine Protein 30 H Urine Glucose (UA) 1000 H Urine Ketones 50 H Urine Occult Blood 10 H Urine Nitrite Negative Urine Bilirubin Negative Urine Urobilinogen Normal Ur Leukocyte Esterase Negative Urine RBC 0 SEEN Urine WBC 0 SEEN Ur Squamous Epith Cells 0 SEEN Urine Bacteria 0 SEEN Urine Mucus 0 SEEN POC Glucose 08/23/21 08/23/21 00:00 00:50 WBC RBC Hgb Hct MCV MCH MCHC RDW Std Deviation RDW Coeff of Paulette Plt Count MPV Immature Gran % (Auto) Neut % (Auto) Lymph % (Auto) [place] % (Auto) Eos % (Auto) Baso % (Auto) Absolute Neuts (auto) Absolute Lymphs (auto) Nucleated RBC % Sodium Potassium Chloride Carbon Dioxide Anion Gap BUN Creatinine Estim Creat Clear Calc Est GFR (MDRD) Af Amer Est GFR (MDRD) Non-Af BUN/Creatinine Ratio Glucose Calcium Urine Color Urine Clarity Urine pH Ur Specific [place] Urine Protein Urine Glucose (UA) Urine Ketones Urine Occult Blood Urine Nitrite Urine Bilirubin Urine Urobilinogen Ur Leukocyte Esterase Urine RBC Urine WBC Ur Squamous Epith Cells Urine Bacteria Urine Mucus POC Glucose 385 H 319 H Discharge Plan Triage Chief Complaint: Hyperglycemia ED Provider: Berto Barclay Dx/Rx/DC Orders Clinical Impression: Diabetes mellitus, new onset Instructions: ED Hyperglycemia New Susp Diabetes Prescriptions: New metformin 500 mg tablet 500 mg PO BID Qty: 60 RF: 0 Continued losartan [Cozaar] 50 MG tablet 50 mg PO DAILY RF: 0 Primary Care Provider: Sebastien Laguerre Referrals: Sebastien Laguerre DO [Primary Care Provider] - (call for appt to be seen early next week) Disposition Disposition: Home, Self Care Discharge Date/Time: 08/23/21 00:54
[2021-08-22] MEDS: 0.9% Normal Saline 1,000 ML 999 ML IV (22:47)
[2021-08-22] MEDS: Insulin Lispro 100 UNIT/ML INSULN.PEN 8 UNIT SC (22:47)
[2021-08-22 22:57] LABS: Bacteria 0 SEEN /hpf (None Seen); Mucous, Urine 0 SEEN /hpf (<or=2+); Red Blood Cells-Urine 0 SEEN /hpf (0-5); Squamous Epithelial Cells - UA 0 SEEN /hpf (0-5); White Blood Cells 0 SEEN /hpf (0-5)
[2021-08-22 22:57] LABS: Absolute Lymphocyte Count 2.51 X10^3/uL (0.83-4.51); Absolute Neutrophil Count 3.2 X10^3/uL (2.0-7.7); Basophil# 0.07 X10^3/uL; Basophil% 1.1 % (0-1); Eosinophil# 0.11 X10^3/uL; Eosinophils% 1.7 % (0-5); Hematocrit 48.7 % (40-54); Lymphocyte # 2.51 X10^3/ul (0.83-4.51); Lymphocyte % 39.2 % (19-41); Mean Corpuscular Hgb 30.7 pg (27.0-32.0); Mean Platelet Vol. 11.5 fl (6.2-12.0); Monocyte# 0.52 X10^3/uL; Monocyte% 8.1 % (0-10); NRBC Flagged by Analyzer 0 % (0-5); Neutrophil # 3.18 X10^3/uL (2.7-7.7); Neutrophil % 49.6 % (47-70); Platelet Count 234 K/mm3 (150-450); RBC Distribution Width CV 12.5 % (11.6-14.6); RBC Distribution Width SD 37.8 fl (35.1-43.9); Red Blood Count 5.87 M/mm3 (4.6-6.2); White Blood Count 6.4 K/mm3 (4.4-11.0)
[2021-08-22 23:02] LABS: Color, Urine Yellow (Yellow); Glucose, Dipstick 1000 mg/dl (Normal); Ketone-Dipstick 50 mg/dl (Negative); Leukocyte Esterase-Dipstick Negative /ul (Negative); Nitrite-Dipstick Negative (Negative); Occult Blood-Urine 10 /ul (Negative); Protein-Dipstick 30 mg/dl (Negative); Specific Gravity, Urine 1.015 (1.002-1.030); Urine Bilirubin Dipstick Negative (Negative); Urine Clarity Clear (Clear); Urine Urobilinogen Normal (Normal)
[2021-08-23] MEDS: metFORMIN HCl 500 MG Tablet PO (00:03)
[2021-08-23 00:05] LABS: Bedside Glucose 385 mg/dL (74-106)
[2021-08-23 00:17] VITALS: RESP 17
[2021-08-23 00:40] LABS: Anion Gap 9 (5-15); BUN 16 mg/dL (7-18); BUN/Creat Ratio 15.1 RATIO (10-20); Calcium,Total 9.7 mg/dL (8.5-10.1); Chloride 100 mmol/L (98-107); Creatinine, Serum 1.06 mg/dL (0.70-1.30); EST Glomerular Filtration Rate 82 mL/min (>60); Est Glom Filt Rate - Afr Amer 99 mL/min (>60); Estimated Creatinine Clearance 94.69 ml/min; Glucose 439 mg/dL (74-106); Potassium 4.2 mmol/L (3.5-5.1); Sodium Level 135 mmol/L (136-145)
[2021-08-23 00:53] VITALS: BP 144/78; PULSE 90; RESP 17; O2SAT 98
[2021-08-23 00:56] LABS: Bedside Glucose 319 mg/dL (74-106)
== END 2021-08-23 00:54 | disposition home or self-care (01) ==
PROVIDERS: Emergency Provider Emergency Medicine; PCP Family Medicine; Visit Provider Emergency Medicine
DX: E11.65 Type 2 diabetes mellitus with hyperglycemia (principal); I10 Essential (primary) hypertension; E66.9 Obesity, unspecified; Z79.84 Long term (current) use of oral hypoglycemic drugs; Z79.899 Other long term (current) drug therapy; Z87.891 Personal history of nicotine dependence
CPT/HCPCS: 80048; 81001; 82962; 85025; 96360; 99284; J7030; A4216

== ENCOUNTER → 2021-11-27 | Outpatient (CLI) | payer OTHER, SELFPAY ==
[2021-11-27 13:45] LABS: Microalbumin,Random Urine 35.8 mg/L (NO RANGE EST.)
[2021-11-27 13:46] LABS: ALB/GLOB Ratio 1.2 RATIO (0.9-2.4); AST(SGOT) 19 U/L (15-37); Alanine Aminotransfer ALT/SGPT 60 U/L (16-61); Albumin, Serum 4.3 g/dL (3.2-5.0); Alkaline Phosphatase 50 U/L (45-117); Anion Gap 4 (5-15); BUN 15 mg/dL (7-18); BUN/Creat Ratio 15.4 RATIO (10-20); Calcium,Total 9.1 mg/dL (8.5-10.1); Chloride 106 mmol/L (98-107); Cholesterol 190 mg/dL (200); Creatinine, Serum 0.97 mg/dL (0.70-1.30); EST Glomerular Filtration Rate 90 mL/min (>60); Est Glom Filt Rate - Afr Amer 109 mL/min (>60); Globulin 3.5 g/dL (2.2-4.2); Glucose 108 mg/dL (74-106); High Density Lipoprotein 30 mg/dL; Potassium 3.8 mmol/L (3.5-5.1); Protein, Total 7.8 g/dL (6.4-8.2); Sodium Level 139 mmol/L (136-145); Triglycerides 138 mg/dL; Very Low Density Lipoprotein 28 mg/dL (5-40)
[2021-11-27 14:08] LABS: Hemoglobin A1c 6.1 % (3.8-5.6)
== END | disposition home or self-care (01) ==
LOC: LAB 12:28
PROVIDERS: PCP Family Medicine; Referring Provider Family Medicine; Visit Provider Family Medicine
DX: E11.9 Type 2 diabetes mellitus without complications (principal)
CPT/HCPCS: 36415; 80053; 80061; 82043; 82570; 83036

== ENCOUNTER → 2021-12-11 | Outpatient (CLI) | payer OTHER, SELFPAY ==
[2021-12-11 09:46] LABS: Ferritin 544 ng/mL (26-388)
[2021-12-17 14:09] LABS: Testosterone, Free 7.71 ng/dL (5.00-21.00)
[2021-12-17 16:32] LABS: Testosterone, Total 257 ng/dL (264-916)
== END | disposition home or self-care (01) ==
LOC: LAB 08:29
PROVIDERS: PCP Family Medicine; Referring Provider Family Medicine; Visit Provider Family Medicine
DX: E11.9 Type 2 diabetes mellitus without complications (principal); R79.0 Abnormal level of blood mineral
CPT/HCPCS: 36415; 82728; 84402; 84403

== ENCOUNTER → 2022-04-06 | Outpatient (CLI) | payer OTHER, SELFPAY ==
[2022-04-06 10:30] LABS: Hemoglobin A1c 6.1 % (3.8-5.6)
[2022-04-06 10:41] LABS: Cholesterol 144 mg/dL (200); Ferritin 496 ng/mL (26-388); High Density Lipoprotein 31 mg/dL; Iron 107 ug/dL (65-175); Triglycerides 234 mg/dL; Very Low Density Lipoprotein 47 mg/dL (5-40)
[2022-04-07 15:20] LABS: Transferrin 305 mg/dL (177-329)
== END | disposition home or self-care (01) ==
PROVIDERS: PCP Family Medicine; Visit Provider Family Medicine
DX: R79.89 Other specified abnormal findings of blood chemistry (principal)
CPT/HCPCS: 36415; 80061; 82728; 83036; 83540; 84466

== ENCOUNTER → 2022-08-20 | Outpatient (CLI) | payer OTHER, SELFPAY ==
[2022-08-30 16:26] LABS: Source Not Provided
== END | disposition home or self-care (01) ==
LOC: LABSPEC 12:18
PROVIDERS: Referring Provider Family Medicine; Visit Provider Family Medicine
DX: N20.0 Calculus of kidney (principal)
CPT/HCPCS: 82360

== ENCOUNTER 2022-09-12 19:24 | Emergency (ER) | payer OTHER, SELFPAY ==
[2022-09-12 19:26] VITALS: BP 120/77; PULSE 110; RESP 16; TEMP 36.6; O2SAT 100; BMI 44.9
--- NOTE | 2022-09-12 20:02 | EDS_ITS ---
HPI <ANAHI Leblanc - Last Filed: 09/12/22 20:14> History of Present Illness Chief Complaint: Upper Extremity Injury Narrative Narrative: Patient is a 42-year-old male with no significant ankle history, patient presents to the emerged department after an injury that occurred to his right hand. Patient states that he was trying to mow the lawn, he used a strap in order to fix a tire, when he undid the strap it came off very suddenly, striking his right thumb. Patient has a 3 cm vertical laceration to the right thumb. Patient has full range of motion, no numbness or tingling. Patient is here for evaluation, he is also concerned that he has not had a tetanus up-to-date [facility] <ANAHI Leblanc - Last Filed: 09/12/22 20:14> [facility] Medical History Hypertension Home Medications metformin 500 mg tablet 500 mg PO BID #60 tabs 08/23/21 [Rx Last Taken Unknown] potassium citrate 15 mEq (1,620 mg) tablet,extended release 15 meq PO TID 09/12/22 [History Last Taken Unknown] rosuvastatin 10 mg tablet 10 mg PO QHS 09/12/22 [History Last Taken Unknown] semaglutide 2 mg/dose (8 mg/3 mL) subcutaneous pen injector (Ozempic) 2 mg subcut FR 09/12/22 [History Last Taken Unknown] Allergy/AdvReac Type Severity Reaction Status Date / Time Penicillins Allergy Rash Verified 09/12/22 19:29 Social History Smoking Status: Former smoker ROS <ANAHI Leblanc - Last Filed: 09/12/22 20:14> ROS ED ROS Narrative Constitutional: Negative for fever, chills, weight loss, weakness Eyes: Negative for vision loss, vision change, double vision ENT: Negative for any sore throat, ear pain, congestion Cardiovascular: Negative for any chest pain, tightness, palpitations Respiratory: Negative for any cough, sputum production, hemoptysis, dyspnea, dyspnea on exertion, orthopnea Gastrointestinal: Negative for any abdominal pain, nausea, vomiting, diarrhea, constipation, blood in stool, blood in vomit : Negative for any urinary frequency, dysuria, retention, blood in urine Muscle skeletal: Negative for any muscle joint pain, stiffness, myalgias, arthralgias, neck pain, back pain Neurological: Negative for any headache, syncope, numbness or tingling, dizziness Skin: Negative for any rashes, lumps, itching, abrasions. Positive for laceration to the base of the right thumb Psychiatric: Negative for any depression, anxiety, stress, suicidal ideation, homicidal ideation Hematologic: Negative for any easy bruising, excessive bruising, easy bleeding Allergies: Negative for any eczema, hives, rash EXAM <ANAHI Leblanc - Last Filed: 09/12/22 20:14> Physical Exam Narrative Exam Narrative: Vital signs reviewed. HEET: Head normocephalic atraumatic, TMs clear bilaterally. Posterior pharynx is clear, moist mucous membranes. Nares clear bilaterally. Neck: Supple with no lymphadenopathy or tenderness. No signs of meningismus, negative jolt sign. Cardiac: Regular rate and rhythm no murmurs gallops or rubs, equal peripheral pulses bilaterally. Respiratory: Lungs clear to auscultation bilaterally. No chest tenderness. Abdomen: Soft, nontender, nondistended. No abdominal bruit or pulsatile masses. No hepatosplenomegaly Extremities: No peripheral edema, no signs of gross trauma or deformity. Active full range of motion of all extremities. Patient has a vertical laceration measuring about 3 cm vertical to the anterior thumb on the palmar aspect. Patient is able to flex, extend, rotate against resistance. There is no tendon involvement. No neurological focal deficit. Neuro: Cranial nerves II through XII intact, no focal neurological deficits. Skin: Clean dry and intact with no rash, purpura, petechiae, vesicles or pustules. Backs/flank: No CVA tenderness, no midline spinal tenderness, no deformity. Psych: Normal mood and affect. No SI, HI or acute psychosis. Const Vital Signs: 09/12/22 19:26 Temperature 97.8 F Temperature Source Temporal Pulse Rate 110 H Respiratory Rate 16 Blood Pressure 120/77 Blood Pressure Mean 91 Pulse Ox 100 Oxygen Delivery Method Room Air MDM <ANAHI Leblanc - Last Filed: 09/12/22 20:14> [facility] Treatment and Re-Evaluation Narrative: Patient appears well, patient appears nontoxic, vital signs are stable. Patient presents to the emergency department with complaints of a laceration to the right thumb. This area was anesthetized with lidocaine, it was explored, no tendon involvement. Total length of the incision was 3 cm. I was able to irrigate it with 250 cc of normal saline. Sterile gloves, sterile drapes were used. I was able to place 6 simple erupted sutures of 4-0 Ethilon. Patient tolerated well. He will have these removed in 10 to 12 days. Dressing will be applied. He was given strict return precaution to return for any redness, fever or chills. Patient is happy with the plan of care and is stable for discharge. Patient's tetanus vaccination was updated today at this visit <Dr. Antonio Beal MD - Last Filed: 09/12/22 20:20> [facility] Narrative Medical decision making narrative: I have personally performed a face to face assessment of the patient and have reviewed the LENCHO Note. I performed a substantive portion of the visit including all aspects of the following. My mcleod findings include: History: Patient had a ratchet strap back break free and caused a laceration volar surface of his right dominant hand thumb. Unsure of tetanus status. No numbness tingling. Exam:There is an approximately 3 cm laceration over the volar surface of the right thumb overlying mostly in the proximal phalanx. No active bleeding. No limitation of range of motion. No distal numbness tingling Medical Decision Making: Patient will have suturing done. Reasons to follow-up signs of infection were discussed Procedures <ANAHI Leblanc - Last Filed: 09/12/22 20:14> Lacerations Right thumb laceration: Length: 3 cm Depth: Skin Shape: Linear Prep: Sterile Conditions and Shure-Clens Laceration repair: Irrigated, Lidocaine and Wound explored Irrigated (ml): 250 Number of Sutures/Dahiana: 6 Suture Information: Ethilon Comment: Sterile gloves, sterile drapes were used Discharge Plan Triage Chief Complaint: Upper Extremity Injury ED Midlevel Provider: Dewayne Knutson ED Provider: Antonio Beal Dx/Rx/DC Orders Clinical Impression: Laceration of thumb Instructions: ED Laceration Extremity, ED Wound Check (No Infection) Prescriptions: No Action metformin 500 mg tablet 500 mg PO BID Qty: 60 0RF rosuvastatin 10 mg tablet 10 mg PO QHS potassium citrate 15 mEq tablet extended release 15 meq PO TID Ozempic 2 mg/dose (8 mg/3 mL) pen injector 2 mg SUBCUT FR Primary Care Provider: Sebastien Laguerre Referrals: Sebastien Laguerre DO [Primary Care Provider] - Activity Restrictions/Additional Instructions: You have 6 sutures, these need to be out in 10 to 12 days. Keep covered while at work. Decrease movement over the next 48 hours. Return for any sign of redness or infection Disposition Disposition: Home, Self Care
[2022-09-12] MEDS: Diphth,Pertuss(Acell),Tet Vac 0.5 ML Vial IM (20:12)
[2022-09-12 20:14] VITALS: RESP 16; O2SAT 98
== END 2022-09-12 20:18 | disposition home or self-care (01) ==
PROVIDERS: Emergency Provider Emergency Medicine; PCP Family Medicine; Visit Provider Emergency Medicine
DX: S61.011A Laceration without foreign body of right thumb without damage to nail, initial encounter (principal); Z87.891 Personal history of nicotine dependence; I10 Essential (primary) hypertension; W26.8XXA Contact with other sharp object(s), not elsewhere classified, initial encounter; Z23 Encounter for immunization
CPT/HCPCS: 12002; 90471; 90715; 99282

== ENCOUNTER 2023-05-03 19:06 | Emergency (ER) | payer OTHER, SELFPAY ==
[2023-05-03 19:08] VITALS: BP 140/96; PULSE 115; RESP 16; TEMP 36.2; O2SAT 98; BMI 34.9
--- NOTE | 2023-05-03 19:18 | EDS_ITS ---
HPI History of Present Illness Chief Complaint: Complaint Detail of Chief Complaint: Hematuria and dysuria Informant: patient Narrative Narrative: Patient presents to the emergency department with complaint of blood in his urine and dysuria as well as urinary frequency. Patient tells me that he passed a kidney stone around noon today. He had been having some left-sided flank pain for about 24 hours. Patient states that he frequently passes kidney stones. He denies any fevers or chills or sweats. He did state that are having some of the hematuria last evening but the first 2 times he urinated today his urine seemed clear. After passing the stone around noon he has been having blood with some clots at times. He is feeling like he needs to void frequently. He is no longer having any flank pain or abdominal pain. [facility] Medical History (Updated 05/03/23 @ 21:[address] Roselyn Lerma DO) Diabetes Hypertension Home Medications metformin 500 mg tablet 500 mg PO BID #60 tabs 08/23/21 [Rx Last Taken Unknown] potassium citrate 15 mEq (1,620 mg) tablet,extended release 15 meq PO TID 09/12/22 [History Last Taken Unknown] rosuvastatin 10 mg tablet 10 mg PO QHS 09/12/22 [History Last Taken Unknown] semaglutide 2 mg/dose (8 mg/3 mL) subcutaneous pen injector (Ozempic) 2 mg subcut FR 09/12/22 [History Last Taken Unknown] sulfamethoxazole 800 mg-trimethoprim 160 mg tablet 1 tab PO BID #6 TABLETS 05/03/23 [Rx Last Taken Unknown] Allergy/AdvReac Type Severity Reaction Status Date / Time Penicillins Allergy Rash Verified 05/03/23 19:09 Social History Smoking Status: Former smoker ROS ROS ED Review of Systems ROS Unobtainable: other Constitutional Constitutional ED: Reports lethargy; Denies chills, fever(s), sweats or weight loss Eyes Eyes: Denies blurry vision, change in vision or diplopia ENT ENT ED: Denies rhinorrhea or sore throat Cardiovascular Cardiovascular: Denies chest pain, orthopnea or racing heartbeat Respiratory/Chest Respiratory/Chest: Denies cough, dyspnea, dyspnea on exertion, orthopnea or sputum Gastrointestinal Gastrointestinal: Denies abdominal pain, diarrhea, nausea or vomiting Genitourinary Genitourinary ED: Reports dysuria, hematuria and urinary frequency Musculoskeletal Musculoskeletal: Denies arthralgias, back pain, myalgias or neck pain Integumentary Denies abscess, Abrasions or rash Neurologic Neurologic: Denies headache(s) or weakness Psychiatric Psychiatric: Denies anxiety, depression or suicidal thoughts Endocrine Endocrinology: Denies polydipsia, polyphagia or polyuria Hematologic/Lymphatic Hematologic/Lymphatic: Denies easy bleeding, easy bruising or lymphadenopathy Allergic/Immunologic Allergic/Immunologic ED: Denies mouth swelling, tongue swelling or urticaria EXAM Physical Exam Const Vital Signs: 05/03/23 19:08 05/03/23 21:07 05/03/23 21:07 Temperature 97.1 F L Temperature Source Temporal Pulse Rate 115 H 85 85 Respiratory Rate 16 16 16 Blood Pressure 140/96 H 123/78 H 123/78 H Blood Pressure Mean 110 93 93 Pulse Ox 98 95 95 Oxygen Delivery Method Room Air Room Air Positive well nourished and well developed General Appearance ED: well developed and NAD HEENT Reports TM's clear and moist mucous membranes normocephalic and atraumatic; Negative for trauma or tenderness Tympanic Membrane ED: Yes TM's clear Eyes PERRL and EOMs intact bilaterally General Eye ED: Negative for pale conjunctiva or scleral icterus Neck no lymphadenopathy, supple and no JVD General: Negative for tenderness Chest Wall inspection of chest normal and palpation of chest normal Chest: Negative for tenderness Resp normal respiratory effort and clear to auscultation bilaterally Effort and Inspection: Negative for respiratory distress or pain with movement Auscultation: Negative for rhonchi, wheezes or diminished lung sounds Cardio regular rate, regular rhythm, S1 normal heart sound, S2 normal heart sound and no murmurs Peripheral Pulses: pulses 2+ throughout GI normal to inspection, nondistended, normoactive bowel sounds, soft to palpation, non-tender, non-distended and no masses Back/Spine no CVA tenderness and no thoracic nor lumbar tenderness Extremity normal to inspection General Extremety ED: Negative for edema General Extremity: Negative for edema Neuro oriented x3, CN's II-XII intact bilaterally, no sensory deficits noted and gait normal Sensorium / Orientation: awake, alert, oriented to person, oriented to place and oriented to time Motor Exam: strength 5/5 throughout and strength abnormal Psych mental status grossly normal Skin no rashes or lesions noted and no wounds MDM MDM MDM Narrative Medical decision making narrative: Patient presents with hematuria after passing a kidney stone. Complains of urgency and frequency. No fever. Clinically looks well. CBC with differential obtained showed a white count 7.2 with hemoglobin 14.8 and platelet count of 205. Chemistries unremarkable. BUN is 16 and creatinine 1.0. Urinalysis was positive for 50-100 RBCs and +1 bacteria. Only 0-5 WBCs noted and only 25 leukocyte esterase. Patient continues to complain of frequency and dysuria. I will go ahead and cover him with an antibiotic and send a urine culture. Advised to follow-up with his primary care physician or urology within next 3 to 5 days. Advised to return if fever, chills, sweats, vomiting, severe abdominal pain, or condition worsening way. Hematuria likely related to passing the kidney stone versus UTI. Patient did bring the kidney stone with him in a plastic bag and it is quite large measuring approximately a centimeter in diameter. He states this is one of the biggest stones he is passed. Lab Data Labs: Laboratory Results - last 24 hr 05/03/23 05/03/23 19:29 19:52 WBC 7.2 RBC 5.00 Hgb 14.8 Hct 43.6 MCV 87.2 MCH 29.6 MCHC 33.9 RDW Std Deviation 41.0 RDW Coeff of Paulette 13.0 Plt Count 206 MPV 9.8 Immature Gran % (Auto) 0.300 Neut % (Auto) 54.0 Lymph % (Auto) 37.1 [place] % (Auto) 5.8 Eos % (Auto) 2.1 Baso % (Auto) 0.7 Absolute Neuts (auto) 3.9 Absolute Lymphs (auto) 2.67 Nucleated RBC % 0 Sodium 140 Potassium 3.7 Chloride 107 Carbon Dioxide 26.0 Anion Gap 7 BUN 16 Creatinine 1.00 Estim Creat Clear Calc 99.36 Est GFR (MDRD) Af Amer 105 Est GFR (MDRD) Non-Af 87 BUN/Creatinine Ratio 16.1 Glucose 158 H Calcium 9.3 Urine Color Red Urine Clarity Turbid Urine pH 6.5 Ur Specific [place] 1.025 Urine Protein 500 H Urine Glucose (UA) Normal Urine Ketones 5 H Urine Occult Blood 250 H Urine Nitrite Negative Urine Bilirubin Negative Urine Urobilinogen Normal Ur Leukocyte Esterase 25 H Urine RBC 50-100 SEEN Urine WBC 0-5 SEEN Ur Squamous Epith Cells 0 SEEN Urine Bacteria 1+ Urine Mucus 0 SEEN Discharge Plan Triage Chief Complaint: Complaint ED Provider: Roselyn Lerma Dx/Rx/DC Orders Clinical Impression: Kidney stone, Acute UTI Instructions: ED Kidney Stone with Pain, ED Urinary Tract Infections in Men Prescriptions: New sulfamethoxazole-trimethoprim [sulfamethoxazole-trimethoprim] 800-160 mg tablet 1 tab PO BID Qty: 6 0RF No Action metformin 500 mg tablet 500 mg PO BID Qty: 60 0RF rosuvastatin 10 mg tablet 10 mg PO QHS potassium citrate 15 mEq tablet extended release 15 meq PO TID Ozempic 2 mg/dose (8 mg/3 mL) pen injector 2 mg SUBCUT FR Primary Care Provider: Sebastien Laguerre Referrals: Karl Alex MD [Med Staff - Active Staff] - 3-5 Days Sebastien Laguerre DO [Primary Care Provider] - 3-5 Days Disposition Disposition: Home, Self Care Discharge Date/Time: 05/03/23 21:40
[2023-05-03 19:36] LABS: Absolute Lymphocyte Count 2.67 X10^3/uL (0.83-4.51); Absolute Neutrophil Count 3.9 X10^3/uL (2.0-7.7); Basophil# 0.05 X10^3/uL; Basophil% 0.7 % (0-1); Eosinophil# 0.15 X10^3/uL; Eosinophils% 2.1 % (0-5); Hematocrit 43.6 % (40-54); Hemoglobin 14.8 g/dL (13.0-16.5); Lymphocyte # 2.67 X10^3/ul (0.83-4.51); Lymphocyte % 37.1 % (19-41); Mean Corp Hgb Conc 33.9 g/dL (32-36); Mean Corpuscular Hgb 29.6 pg (27.0-32.0); Mean Corpuscular Volume 87.2 fL (80-94); Mean Platelet Vol. 9.8 fl (6.2-12.0); Monocyte# 0.42 X10^3/uL; Monocyte% 5.8 % (0-10); NRBC Flagged by Analyzer 0 % (0-5); Neutrophil # 3.89 X10^3/uL (2.7-7.7); Platelet Count 206 K/mm3 (150-450); White Blood Count 7.2 K/mm3 (4.4-11.0)
[2023-05-03 19:50] LABS: Anion Gap 7 (5-15); BUN 16 mg/dL (7-18); BUN/Creat Ratio 16.1 RATIO (10-20); Calcium,Total 9.3 mg/dL (8.5-10.1); Chloride 107 mmol/L (98-107); EST Glomerular Filtration Rate 87 mL/min (>60); Est Glom Filt Rate - Afr Amer 105 mL/min (>60); Estimated Creatinine Clearance 99.36 ml/min; Glucose 158 mg/dL (74-106); Potassium 3.7 mmol/L (3.5-5.1); Sodium Level 140 mmol/L (136-145)
[2023-05-03 19:56] LABS: Mucous, Urine 0 SEEN /hpf (<or=2+); Squamous Epithelial Cells - UA 0 SEEN /hpf (0-5)
[2023-05-03 20:01] LABS: Color, Urine Red (Yellow); Glucose, Dipstick Normal (Normal); Ketone-Dipstick 5 mg/dl (Negative); Leukocyte Esterase-Dipstick 25 /ul (Negative); Nitrite-Dipstick Negative (Negative); Occult Blood-Urine 250 /ul (Negative); Protein-Dipstick 500 mg/dl (Negative); Specific Gravity, Urine 1.025 (1.002-1.030); Urine Bilirubin Dipstick Negative (Negative); Urine Clarity Turbid (Clear); Urine Urobilinogen Normal (Normal); Urine pH 6.5 (5.0 - 8.0)
[2023-05-03 20:14] LABS: Bacteria 1+ /hpf (None Seen); Red Blood Cells-Urine 50-100 SEEN /hpf (0-5); White Blood Cells 0-5 SEEN /hpf (0-5)
[2023-05-03 21:07] VITALS: BP 123/78; PULSE 85; RESP 16; O2SAT 95
[2023-05-03] MEDS: Smz/Tmp Ds Tablet 1 TABLET PO (21:26)
== END 2023-05-03 21:40 | disposition home or self-care (01) ==
PROVIDERS: Emergency Provider Emergency Medicine; PCP Family Medicine; Visit Provider Emergency Medicine
DX: N20.0 Calculus of kidney (principal); E11.9 Type 2 diabetes mellitus without complications; N39.0 Urinary tract infection, site not specified; I10 Essential (primary) hypertension; Z79.84 Long term (current) use of oral hypoglycemic drugs; Z79.899 Other long term (current) drug therapy; Z87.891 Personal history of nicotine dependence
CPT/HCPCS: 80048; 81001; 85025; 87086; 99283

== ENCOUNTER → 2023-05-05 | Outpatient (CLI) | payer OTHER, SELFPAY ==
[2023-05-05 16:14] LABS: Hemoglobin A1c 5.4 % (3.8-5.6)
[2023-05-05 16:24] LABS: Uric Acid 2.6 mg/dL (3.5-7.2)
== END | disposition home or self-care (01) ==
LOC: BFHLAB 11:15
PROVIDERS: PCP Family Medicine; Visit Provider Family Medicine
DX: N21.0 Calculus in bladder (principal); E11.9 Type 2 diabetes mellitus without complications
CPT/HCPCS: 36415; 83036; 84550

== ENCOUNTER → 2023-09-09 | Outpatient (CLI) | payer OTHER, SELFPAY | END | disposition home or self-care (01) | LOC: LABSPEC 10:59 | PROVIDERS: PCP Family Medicine; Visit Provider Family Medicine | DX: N20.9 Urinary calculus, unspecified (principal); R31.9 Hematuria, unspecified | CPT/HCPCS: 87086 ==

== ENCOUNTER 2023-10-13 08:25 | Day surgery (SDC) | payer OTHER, SELFPAY ==
[2023-10-13] VITALS (10 sets, daily range): BP systolic 96–125; BP diastolic 51–97; PULSE 69–85; RESP 16; TEMP 36.1–36.4; O2SAT 89–96; BMI 36.3
[2023-10-13 09:31] LABS: Bedside Glucose 114 mg/dL (74-106)
[2023-10-13] MEDS: Cefazolin 2 GM in 0.9% Normal Saline (100mL Bag) 100 ML IV (10:46)
[2023-10-13] MEDS: Lubricating Jelly 60 GM Tube 30 GM ×2 (11:05)
--- NOTE | 2023-10-13 11:25 | PCM.HP.STD ---
HPI - General General Date of Service: 10/13/23 Chief Complaint: Bladder stones HPI Narrative MEREDITH FULTON, is a 43 M who presents for laser removal of bladder stones large [facility] Medical History (Updated 10/08/23 @ 09:20 by Sangeeta Parkinson) Loss of hearing Wears glasses History of steroid therapy Bladder disease High cholesterol Restless legs Back pain Injury of head and neck Loss of consciousness Dietary restriction CPAP (continuous positive airway pressure) dependence Asthma Former smoker Leg cramps History of edema Diabetes Hypertension Home Medications ?Medication ?Instructions ?Recorded ?Last Taken ?Type metformin 500 mg tablet 500 mg PO BID #60 tabs 08/23/21 Unknown Rx potassium citrate 15 mEq (1,620 15 meq PO TID 09/12/22 Unknown History mg) tablet,extended release rosuvastatin 10 mg tablet 10 mg PO QHS 09/12/22 Unknown History semaglutide 2 mg/dose (8 mg/3 mL) 2 mg subcut FR 09/12/22 Unknown History subcutaneous pen injector (Ozempic) losartan 50 mg tablet 50 mg PO DAILY 10/08/23 10/13/23 07:30 History tamsulosin 0.4 mg capsule 0.4 mg PO DAILY 10/08/23 Unknown History ciprofloxacin HCl 500 mg tablet 500 mg PO BID #6 tabs 10/13/23 Unknown Rx ibuprofen 600 mg tablet 600 mg PO Q6H PRN fever or pain 10/13/23 Unknown Rx #20 tabs phenazopyridine 100 mg tablet 100 mg PO TID #14 tabs 10/13/23 Unknown Rx (Pyridium) Allergy/AdvReac Type Severity Reaction Status Date / Time Penicillins Allergy Rash Verified 10/13/23 08:40 Surgical History (Updated 10/08/23 @ 09:20 by Sangeeta Parkinson) Hx of wisdom tooth extraction Social History Smoking Status: Former smoker Vital Signs Vital Signs Vital Signs: 10/13/23 08:43 10/13/23 08:43 Temperature 97.5 F L Temperature Source Temporal Pulse Rate 69 Respiratory Rate 16 Respiratory Pattern Normal Blood Pressure 125/85 H Blood Pressure Mean 98 Blood Pressure Source Monitor Blood Pressure Position Semi-Fowlers Blood Pressure Location Left Arm Pulse Ox 96 Oxygen Delivery Method Room Air Weight Weight: 115 kg Body Mass Index (BMI) 36.3 Results Lab / Micro Data Labs: Laboratory Results - last 24 hr 10/13/23 08:59: POC Glucose 114 H
--- NOTE | 2023-10-13 11:26 | DCINST_ITS ---
Discharge Instructions Diet Discharge Diet: No restrictions Activity Discharge Activity: Return to Normal Activity and May Not Drive (while taking narcotic pain medications.) Dressing / Incision Call your doctor if you observe: Fever of 101 or Higher Follow Up Care Please Follow Up With: Karl Alex MD When: Call [phone] for an appointment Test Results: Test results from this visit will be discussed in further detail at your follow- up appointment, if applicable. Discharge Plan Admission Primary Reason for Your Visit: Laser bladder stones Attending Provider: Karl Alex Primary Care Provider: Sebastien Laguerre Instructions Print Language: [place] Discharge Orders/Prescriptions Prescriptions: New phenazopyridine [Pyridium] 100 mg tablet 100 mg PO TID Qty: 14 0RF ibuprofen 600 mg tablet 600 mg PO Q6H PRN (Reason: fever or pain) Qty: 20 0RF ciprofloxacin HCl 500 mg tablet 500 mg PO BID Qty: 6 0RF Continued metformin 500 mg tablet 500 mg PO BID Qty: 60 0RF rosuvastatin 10 mg tablet 10 mg PO QHS potassium citrate 15 mEq tablet extended release 15 meq PO TID Ozempic 2 mg/dose (8 mg/3 mL) pen injector 2 mg SUBCUT FR losartan 50 mg tablet 50 mg PO DAILY tamsulosin 0.4 mg capsule 0.4 mg PO DAILY Referrals / Follow Up: Karl Alex MD [Med Staff - Active Staff] - Sebastien Laguerre DO [Primary Care Provider] - Disposition Disposition (needs filled in before D/C Order can be placed): Home, Self Care
--- NOTE | 2023-10-13 11:26 | PCM.OPRPT ---
Report of Operation Date of Procedure: 10/13/23 Pre-Operative Diagnosis: Large bladder stones Post-Operative Diagnosis: The same Surgery/Procedure Performed:: Cystolitholapaxy for very large bladder stones Description of Surgical Findings:: Patient was taken back to the operating Becki with induction of anesthesia he underwent general intubation. He was placed in dorsolithotomy position. The penis and testicles were prepped and draped in usual fashion going to the penis with a 21 Sudanese scope with the meatus slightly tight so I dilated from 22-20 4-26 Sudanese using sounds serially very carefully and the elevated get into the urethra with a 21 Sudanese rigid cystourethroscope entire length the urethra was clear of any scar tissues or abnormalities the sphincter was intact the prostate had a high riding bladder neck but otherwise no significant obstruction, fairly open channel from the verumontanum into the bladder neck then once inside the bladder he had 2 large stones I then used a 960 ?m laser fiber and the thulium laser and the stones were both lasered completely. After lasering the stones completely small pieces I evacuated all the pieces of the bladder and then drained the bladder checked for bleeding there is no bleeding the bladder and then I drained the bladder remove the cystoscope and will give him a voiding trial and he can go home today after he urinates. Successful removal of the bladder stones he will be on Flomax. Surgeon: Karl Alex Type of Anesthesia: General Drains: none Estimated Blood Loss (mL): 0 Admit VTE Documentation VTE Present on Admission: No VTE Mechan Device Prophylaxis: SCD's VTE Pharm Prophylaxis ordered?: No
[2023-10-13] MEDS: Lactated Ringers 1,000 ML 100 ML IV (12:18)
[2023-10-13] MEDS: Ketorolac 15 MG/ML Vial IV (12:18)
[2023-10-13] MEDS: Phenazopyridine 95 MG Tablet 190 MG PO (13:10)
== END 2023-10-13 13:40 | disposition home or self-care (01) ==
LOC: SDC 08:27 → AC 08:32
PROVIDERS: PCP Family Medicine; Referring Provider Urology; Visit Provider Urology
PROC: 0TCB8ZZ Extirpation of Matter from Bladder, Via Natural or Artificial Opening Endoscopic (ICD-10-PCS; CPT 52318; principal; 2023-10-13 10:25)
DX: N21.0 Calculus in bladder (principal); E11.9 Type 2 diabetes mellitus without complications; E78.00 Pure hypercholesterolemia, unspecified; I10 Essential (primary) hypertension; J45.909 Unspecified asthma, uncomplicated; Z79.84 Long term (current) use of oral hypoglycemic drugs; Z79.85 Long-term (current) use of injectable non-insulin antidiabetic drugs; Z79.899 Other long term (current) drug therapy; Z87.891 Personal history of nicotine dependence
CPT/HCPCS: 52318; 00910; 82962; J7120; J2405

== ENCOUNTER → 2024-05-22 | Outpatient (CLI) | payer OTHER, SELFPAY ==
[2024-05-22 09:38] LABS: PSA,Total - Annual Screen 0.81 ng/mL (0.00-4.00)
== END | disposition home or self-care (01) ==
PROVIDERS: PCP Family Medicine; Referring Provider Urology; Visit Provider Urology
DX: Z12.5 Encounter for screening for malignant neoplasm of prostate (principal)
CPT/HCPCS: 36415; 84153; G0103

== ENCOUNTER → 2025-01-02 | Outpatient (CLI) | payer OTHER, SELFPAY ==
[2025-01-02 17:55] LABS: Hematocrit 44.9 % (40-54); Hemoglobin 15.2 g/dL (13.0-16.5); Immature Granulocytes Count 0.010 X10^3/uL (0.0-0.0); Mean Corp Hgb Conc 33.9 g/dL (32-36); Mean Corpuscular Volume 85.7 fL (80-94); Mean Platelet Vol. 10.6 fl (6.2-12.0); NRBC Flagged by Analyzer 0 % (0-5); Platelet Count 208 K/mm3 (150-450); RBC Distribution Width CV 12.7 % (11.6-14.6); RBC Distribution Width SD 39.5 fl (35.1-43.9); Red Blood Count 5.24 M/mm3 (4.6-6.2); White Blood Count 5.7 K/mm3 (4.4-11.0)
[2025-01-02 18:26] LABS: AST(SGOT) 29 U/L (<=37); Alanine Aminotransfer ALT/SGPT 55 U/L (<=46); Albumin, Serum 4.8 g/dL (3.5-5.0); Alkaline Phosphatase 47 U/L (40-129); Anion Gap 14 (5-15); BUN 15 mg/dL (4-19); BUN/Creat Ratio 14.0 RATIO (10-20); Calcium,Total 9.9 mg/dL (7.6-11.0); Carbon Dioxide 23.8 mmol/L (21.0-32.0); Chloride 101 mmol/L (98-108); Cholesterol 82 mg/dL (<=200); Globulin 2.9 g/dL (2.2-4.2); Glucose 87 mg/dL (70-99); Low Density Lipoprotein Calc. 36 mg/dL; Potassium 4.0 mmol/L (3.3-5.1); Triglycerides 83 mg/dL; Very Low Density Lipoprotein 17 mg/dL (5-40); cholesterol:hdl ratio screen 2.80
[2025-01-02 19:30] LABS: Creatinine, Urine (random) 307.00 mg/dL (39.00-259.00); Microalbumin,Random Urine 41.0 mg/L (<20 mg/L)
[2025-01-03 11:57] LABS: Ferritin 735 ng/mL (37-417); Hepatitis C Antibody Nonreactive (Nonreactive); Iron 89 ug/dL (65-175); Iron Binding Capacity,Total 397 ug/dL (250-450); Iron Binding Capacity,Unsat 308 ug/dL (228-428)
[2025-01-03 13:28] LABS: Bilirubin, Direct 0.49 mg/dL (0.00-0.30)
== END | disposition home or self-care (01) ==
LOC: BFHLAB 15:28
PROVIDERS: PCP Family Medicine; Visit Provider Family Medicine
DX: Z00.00 Encounter for general adult medical examination without abnormal findings (principal); E11.9 Type 2 diabetes mellitus without complications; E29.1 Testicular hypofunction; R17 Unspecified jaundice; R74.01 Elevation of levels of liver transaminase levels
CPT/HCPCS: 36415; 80053; 80061; 82043; 82247; 82248; 82570; 82728; 83036; 83540; 83550; 84403; 85025; 86704; 86803

== ENCOUNTER → 2025-01-22 | Outpatient (CLI) | payer OTHER, SELFPAY ==
--- NOTE | 2025-01-22 07:20 | US_ITS ---
PROCEDURE: ABDOMEN LIMITED 01/22/2025 REASON FOR EXAM: ELEVATED BILIRUBIN TECHNIQUE: Procedure Code: USABDL Modality: US Procedure: ABDOMEN LIMITED COMPARISON: None FINDINGS: Liver: Diffusely echogenic suggesting fatty infiltration. Hepatomegaly. The liver measures 19.7 cm. Gallbladder: No stones, sludge, wall thickening or tenderness. Common bile duct: Normal measuring 3.7 mm . Pancreas: Normal Other: Visualized portions of the right kidney are unremarkable. No right upper quadrant ascites. US/Abdomen Limited IMPRESSION: Hepatomegaly. Diffuse fatty infiltration of the liver. Reading Location: [place] [id number]
--- OUTSIDE RECORDS SUMMARY | 2025-01-22 07:37 | XMS RPT_ITS | CCD ---
Author Organization [facility] Care Team Providers Care Biomechanical Engineer Name Role Phone (Hist), No Pcp Primary Care Provider UnavailTYE Merrill Referring Unavailable Dr. Tye Laguerre DO Primary Care Provider Dr. Tye Laguerre DO Attending Provider Karl Alex Referring Unavailable Tye Laguerre Primary Care Unavailable Karl Alex Attending Unavailable Tye Laguerre Primary Care Unavailable Tye Laguerre Attending Unavailable Tye Laguerre Primary Care Unavailable Tye Laguerre Attending Unavailable Tye Laguerre Referring Unavailable Allergies Allergy Classification Reported Allergen(s) Allergy Type Date of Onset Reaction(s) Facility (11 sources) Penicillins; Translations: [Penicillins] Allergy to substance 08-22-2021 [facility] (1 source) Penicillin; Translations: [PENICILLIN] Drug Allergy 02-08-2016 [facility] Repository Medications Current Medications Medication Drug Class(es) Dates Sig (Normalized) Sig (Original) [id number] 200 actuat albuterol 0.09 mg/actuat metered dose inhaler (2 sources) beta2-Adrenergic Agonist Start: 02-08-2016 take 2 puff(s) by inhalation every four hours as needed albuterol HFA (PROAIR HFA) 90 mcg/actuation inhaler Indications: Sinobronchitis Inhale 2 Puffs as instructed every 4 hours as needed. 1 Inhaler 0 02/08/2016 Active benzonatate 100 mg oral capsule (4 sources) Non-narcotic Antitussive Start: 04-10-2017 take 1 capsule by mouth three times daily as needed benzonatate (TESSALON PERLE) 100 mg capsule Indications: Influenza , Cough Take 1 capsule by mouth three times daily as needed. 30 capsule 0 04/10/2017 Active BENZONATATE ORAL Take by mouth. 0 Active ciprofloxacin 500 mg oral tablet (1 source) Quinolone Antimicrobial Start: 10-13-2023 take 1 tablet by mouth twice daily Ciprofloxacin Hcl 500 mg tablet Active 500 mg PO TWICE A DAY 6 0 October 13, 2023 12:00am codeine phosphate 2 mg/ml / guaiFENesin 20 mg/ml oral solution (2 sources) Opioid Agonist Start: 07-10-2016 take 5-10 mL by mouth four times daily as needed for cough codeine-guaiFENesin (ROBITUSSIN AC) 10-100 mg/5 mL syrup Indications: Acute bronchitis, unspecified organism Take 5-10 mL by mouth four times daily as needed for Cough. May cause drowsiness. 120 mL 0 07/10/2016 Active ibuprofen 600 mg oral tablet (11 sources) Nonsteroidal Anti-inflammatory Drug Start: 10-13-2023 take 1 tablet by mouth every six hours as needed for pain Ibuprofen 600 mg tablet Active 600 mg PO EVERY 6 HOURS as needed for fever or pain 20 0 October 13, 2023 12:00am Start: 10-18-2019 End: 10-19-2019 take 600-800 mg by mouth once daily as needed for pain Ibuprofen 200 MG tablet Discontinued 600 - 800 mg PO DAILY NEEDED as needed for Pain Or Fever October 18, 2019 12:00am October 19, 2019 11:15am losartan potassium 50 mg oral tablet (8 sources) Angiotensin 2 Receptor Lulu Start: 10-08-2023 take 1 tablet by mouth once daily Losartan 50 mg tablet Active 50 mg PO DAILY October 08, 2023 12:00am Start: 02-18-2017 take 1 tablet by mouth once da monet Losartan (Cozaar) 50 MG tablet Active 50 MG PO DAILY February 17, 2017 11:00pm metFORMIN hydrochloride 500 mg oral tablet (10 sources) Biguanide Start: 08-23-2021 take 1 tablet by mouth twice daily Metformin 500 mg tablet Active 500 mg PO TWICE A DAY 60 0 August 23, 2021 12:00am phenazopyridine hydrochloride 100 mg oral tablet (1 source) Start: 10-13-2023 take 1 tablet by mouth three times daily Phenazopyridine (Pyridium) 100 mg tablet Active 100 mg PO THREE TIMES A DAY 14 0 October 13, 2023 12:00am potassium citrate 15 meq extended release oral tablet (5 sources) Start: 09-12-2022 take 1 tablet by mouth three times daily Potassium Citrate 15 mEq tablet extended release Active 15 meq PO THREE TIMES A DAY September 12, 2022 12:00am rosuvastatin calcium 10 mg oral tablet (5 sources) HMG-CoA Reductase Inhibitor Start: 09-12-2022 take 1 tablet by mouth at bedtime Rosuvastatin 10 mg tablet Active 10 mg PO AT BEDTIME September 12, 2022 12:00am Semaglutide (Ozempic) 2 mg/dose (8 mg/3 mL) pen injector (5 sources) Start: 09-12-2022 Semaglutide (Ozempic) 2 mg/dose (8 mg/3 mL) pen injector Active 2 mg SC FR September 12, 2022 12:00am Start: 09-12-2022 Semaglutide (O zempic) 2 mg/dose (8 mg/3 mL) pen injector Active 2 MG SC FR September 11, 2022 11:00pm Start: 09-12-2022 Semaglutide (O zempic) 2 mg/dose (8 mg/3 mL) pen injector Active 2 MG SC FR September 12, 2022 12:00am tamsulosin hydrochloride 0.4 mg oral capsule (1 source) alpha-Adrenergic Lulu Start: 10-08-2023 take 1 capsule by mouth once daily Tamsulosin 0.4 mg capsule Active 0.4 mg PO DAILY October 08, 2023 12:00am Completed/Discontinued Medications Medication Drug Class(es) Dates Sig (Normalized) Sig (Original) sulfamethoxazole 800 mg / trimethoprim 160 mg oral tablet (4 sources) Dihydrofolate Reductase Inhibitor Antibacterial, Sulfonamide Antimicrobial Start: 05-03-2023 End: 10-08-2023 Sulfamethoxazole- Trimethoprim 800-160 mg tablet Discontinued 1 {tbl} PO TWICE A DAY May 03, 2023 1:00am October 08, 2023 9:11am Start: 05-03-2023 take 1 tablet by stewart twice daily Sulfamethoxazole-Trimethoprim Active 1 T ABLET PO TWICE A DAY May 03, 2023 1:00am Problems Active Problems Problem Classification Problem Date Documented Da te Episodic/Chronic Calculus of urinary tract (4 sources) Kidney stone; Translations: [Calculus of kidney] 05-03-2023 Episodic Diabetes mellitus without complication (10 sources) Newly diagnosed diabetes; Translations: [Type 2 diabetes mellitus without complications] 08-31-2021 Chronic Open wounds of extremities (5 sources) Laceration of thumb; Translations: [Laceration without foreign body of unspecified thumb without damage to nail, initial encounter] 09-12-2022 Episodic Other nutritional; endocrine; and metabolic disorders (1 source) Other disorders of bilirubin metabolism; 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 Urinary tract infections (4 sources) Acute urinary tract infection; Translations: [Urinary tract infection, site not specified] 05-03-2023 Episodic Past or Other Problems Problem Classification Problem Date Documented Da te Episodic/Chronic Other screening for suspected conditions (not mental disorders or infectious disease) (1 source) Encounter for screening for malignant neoplasm of prostate; Translations: [Encounter for screening for malignant neoplasm of prostate] Onset: 06-12-2024 Episodic Results Test Name Value Interpretation Reference Range Facility Hepatitis B Core Ab Totalon 01-04-2025 HEP B CORE,TOT Negative Normal Negative [facility] Comment on above: Result Comment: Perf ormed at: CB - [facility] [address] [id number] Senior Validation Engineer: Francois Valencia PhD, Phone: [phone] Performed By: #### L 503.6030, L502.0250, L503.6550, L500.4100, L501.9985, L3100.0460, L500.4050, L100.0100, L3890.6301, L509.3001 #### [facility] [address] [place], [address] Bilirubin,Total Dir,Indon Bilirubin [Mass/Vol] 2.60 mg/dL High 0.00-1.[address] [facility] Comment on above: Order Comment: PLERAMEZ Mccarthy ADD ON DIRECT AND INDIRECT BILIRUBIN. Performed By: #### L 503.6030, L502.0250, L503.6550, L500.4100, L501.9985, L3100.0460, L500.4050, L100.0100, L3890.6301, L509.3001 #### [facility] [address] [place], [place], [id number] Bilirubin.direct [Mass/Vol] 0.49 mg/dL High 0.00-0.30 [facility] Comment on above: Order Comment: PLEAS E ADD ON DIRECT AND INDIRECT BILIRUBIN. Performed By: #### L 503.6030, L502.0250, L503.6550, L500.4100, L501.9985, L3100.0460, L500.4050, L100.0100, L3890.6301, L509.3001 #### [facility] [address] [place], [address] I BILI 2.11 mg/dL High 0.00-1.00 [facility] Comment on above: Order Comment: PLEAS E ADD ON DIRECT AND INDIRECT BILIRUBIN. Performed By: #### L 503.6030, L502.0250, L503.6550, L500.4100, L501.9985, L3100.0460, L500.4050, L100.0100, L3890.6301, L509.3001 #### [facility] [address] [place], [address] Ferritinon 01-03-2025 Ferritin [Mass/Vol] 735 ng/mL High 37-417 [facility] Comment on above: Order Comment: PLEAS E ADD ON THEODORE,IBC,HEP B CORE ANTIBODY,HEP C Performed By: #### L 503.6030, L502.0250, L503.6550, L500.4100, L501.9985, L3100.0460, L500.4050, L100.0100, L3890.6301, L509.3001 #### [facility] [address] [place], [place], [id number] Hepatitis C Antibodyon 01-03 Hepatitis C Ab Non-Reactive Normal Nonreactive [facility] Comment on above: Order Comment: PLEAS E ADD ON THEODORE,IBC,HEP B CORE ANTIBODY,HEP C Result Comment: Reac tive: Presumptive evidence of antibodies to HCV. Follow CDC recommendations for supplemental testing. Non-Reactive: Antibodies to HCV were not detected; does not exclude the possibility of exposure to HCV Reactive Results are presumptive evidence of antibodies to HCV. Follow CDC recommendations for supplemental testing. Order confirmation testing: HCV Quant by PCR testing - HCVPCR #[id number] Non Reactive: < 0.8 Equivocal: >/= 0.8 to < 1.0 Reactive: >/= 1.0 The [facility] requires that a reactive/equivocal HCV antibody result be sent out for confirmation. HCV Quant by PCR testing. Performed By: #### L 503.6030, L502.0250, L503.6550, L500.4100, L501.9985, L3100.0460, L500.4050, L100.0100, L3890.6301, L509.3001 #### [facility] [address] [facility] [place], [place], [id number] Iron+Iron Binding Capacityon 01-03-2025 Iron [Mass/Vol] 89 ug/dL Normal 65-175 [facility] Comment on above: Order Comment: UZMA Mccarthy ADD ON THEODORE,IBC,HEP B CORE ANTIBODY,HEP C Performed By: #### L 503.6030, L502.0250, L503.6550, L500.4100, L501.9985, L3100.0460, L500.4050, L100.0100, L3890.6301, L509.3001 #### [facility] [address] [place], [address] IRON SATURATION 22.0 Normal 9-55 [facility] Comment on above: Order Comment: UZMA Mccarthy ADD ON THEODORE,IBC,HEP B CORE ANTIBODY,HEP C Performed By: #### L 503.6030, L502.0250, L503.6550, L500.4100, L501.9985, L3100.0460, L500.4050, L100.0100, L3890.6301, L509.3001 #### [facility] [address] [facility] [place], [address] TIBC 397 ug/dL Normal 250-450 [facility] Comment on above: Order Comment: UZMA Mccarthy ADD ON THEODORE,IBC,HEP B CORE ANTIBODY,HEP C Performed By: #### L 503.6030, L502.0250, L503.6550, L500.4100, L501.9985, L3100.0460, L500.4050, L100.0100, L3890.6301, L509.3001 #### [facility] [address] [place], [address] UIBC 308 ug/dL Normal 228-428 [facility] Comment on above: Order Comment: UZMA Mccarthy ADD ON THEODORE,IBC,HEP B CORE ANTIBODY,HEP C Performed By: #### L 503.6030, L502.0250, L503.6550, L500.4100, L501.9985, L3100.0460, L500.4050, L100.0100, L3890.6301, L509.3001 #### [facility] [address] [place], [place], [id number] Serum hepatitis B virus core antibody detectionOrdered By: Tye Laguerre on 01-03-2025 HBV core Ab Ql (S) Negative Negative [facility] Comment on above: Performed at: [address] [id number] Director: Francois Valencia PhD, Phone: [phone] Absolute lymphocyte countOrd ered By: Tye Laguerre on 01-02-2025 Lymphocytes Auto (Unsp spec) [#/Vol] 1.71 10*3/uL 0.83-4.51 [facility] Absolute neutrophil countOrd ered By: Tye Laguerre on 01-02-2025 Neutrophils (Bld) [#/Vol] 3.3 10*3/uL 2.0-7.7 [facility] Anion gap in Serum or Plasma Ordered By: Tye Laguerre on 01-02-2025 Anion gap [Moles/Vol] 14 mmol/L 5-15 [facility] Automated lymphocyte count a s percentage of total leukocytesOrdered By: Tye FieldShade on 01-02-2025 Lymphocytes/100 WBC Auto (Unsp spec) 30.2 % - [facility] BUN/creatinine ratioOrdered By: Tye Sahde on 01-02-2025 Urea nitrogen/Creatinine [Mass ratio] 14.0 mg/mg 10- [facility] Basophil percentageOrdered B y: Tye FieldShade on 01-02-2025 Basophils/100 WBC (Bld) 0.9 % 0-1 [facility] Bilirubin directOrdered By: Tye Laguerre on 01-02-2025 Bilirubin.direct [Mass/Vol] 0.49 mg/dL High 0.00-0.30 [facility] Bilirubin, totalOrdered By: Tye Laguerre on 01-02-2025 Bilirubin [Mass/Vol] 2.60 mg/dL High 0.00-1.[address] [facility] CBC W/Diff, Automatedon 12-09 Absolute Lymph 1.71 X10 3/uL Normal 0.83-4.51 [facility] Comment on above: Performed By: #### L 503.6030, L502.0250, L503.6550, L500.4100, L501.9985, L3100.0460, L500.4050, L100.0100, L3890.6301, L509.3001 #### [facility] [address] [place], [place], [id number] ([address]) Absolute Neut 3.3 X10 3/uL Normal 2.0-7.7 [facility] Comment on above: Performed By: #### L 503.6030, L502.0250, L503.6550, L500.4100, L501.9985, L3100.0460, L500.4050, L100.0100, L3890.6301, L509.3001 #### [facility] [address] [place], [address] Basophils/100 WBC (Bld) 0.9 % Normal 0-1 [facility] [place] Comment on above: Performed By: #### L 503.6030, L502.0250, L503.6550, L500.4100, L501.9985, L3100.0460, L500.4050, L100.0100, L3890.6301, L509.3001 #### [facility] [address] [place], [address] Eosinophils/100 WBC (Bld) 1.4 % Normal 0-5 [facility] Comment on above: Performed By: #### L 503.6030, L502.0250, L503.6550, L500.4100, L501.9985, L3100.0460, L500.4050, L100.0100, L3890.6301, L509.3001 #### [facility] [address] [place], [address] Erythrocyte distribution width (RBC) [Ratio] 12.7 % Normal 11.6-14.6 [facility] Comment on above: Performed By: #### L 503.6030, L502.0250, L503.6550, L500.4100, L501.9985, L3100.0460, L500.4050, L100.0100, L3890.6301, L509.3001 #### [facility] [address] [place], [address] Hematocrit (Bld) [Volume fraction] 44.9 % Normal 40-54 [facility] Comment on above: Performed By: #### L 503.6030, L502.0250, L503.6550, L500.4100, L501.9985, L3100.0460, L500.4050, L100.0100, L3890.6301, L509.3001 #### [facility] [address] [place], [address] Hemoglobin (Bld) [Mass/Vol] 15.2 g/dL Normal 13.0-16.5 [facility] Comment on above: Performed By: #### L 503.6030, L502.0250, L503.6550, L500.4100, L501.9985, L3100.0460, L500.4050, L100.0100, L3890.6301, L509.3001 #### [facility] [address] [place], [address] IG% 0.200 Normal 0.0-0.9 [facility] Comment on above: Result Comment: IG% - Immature Granulocytes (promyelocytes, myelocytes and metamyelocytes) > 1% indicates that a LEFT SHIFT is Present. Performed By: #### L 503.6030, L502.0250, L503.6550, L500.4100, L501.9985, L3100.0460, L500.4050, L100.0100, L3890.6301, L509.3001 #### [facility] [address] [place], [address] Lymphocytes/100 WBC (Bld) 30.2 % Normal 19-41 [facility] Comment on above: Performed By: #### L 503.6030, L502.0250, L503.6550, L500.4100, L501.9985, L3100.0460, L500.4050, L100.0100, L3890.6301, L509.3001 #### [facility] [address] [place], [address] MCH (RBC) [Entitic mass] 29.0 pg Normal 27.0-32.0 [facility] Comment on above: Performed By: #### L 503.6030, L502.0250, L503.6550, L500.4100, L501.9985, L3100.0460, L500.4050, L100.0100, L3890.6301, L509.3001 #### [facility] [address] [place], [address] MCHC (RBC) [Mass/Vol] 33.9 g/dL Normal 32-36 [facility] Comment on above: Performed By: #### L 503.6030, L502.0250, L503.6550, L500.4100, L501.9985, L3100.0460, L500.4050, L100.0100, L3890.6301, L509.3001 #### [facility] [address] [place], [address] MCV (RBC) [Entitic vol] 85.7 fL Normal 80-94 [facility] [place] Comment on above: Performed By: #### L 503.6030, L502.0250, L503.6550, L500.4100, L501.9985, L3100.0460, L500.4050, L100.0100, L3890.6301, L509.3001 #### [facility] [address] [place], [address] Monocytes/100 WBC (Bld) 9.0 % Normal 0-10 [facility] Comment on above: Performed By: #### L 503.6030, L502.0250, L503.6550, L500.4100, L501.9985, L3100.0460, L500.4050, L100.0100, L3890.6301, L509.3001 #### [facility] [address] [place], [address] Neutrophils/100 WBC (Bld) 58.3 % Normal 47-70 [facility] Comment on above: Performed By: #### L 503.6030, L502.0250, L503.6550, L500.4100, L501.9985, L3100.0460, L500.4050, L100.0100, L3890.6301, L509.3001 #### [facility] [address] [place], [address] Nucleated RBC (Bld) [#/Vol] 0 10*3/uL Normal 0-5 [facility] Comment on above: Performed By: #### L 503.6030, L502.0250, L503.6550, L500.4100, L501.9985, L3100.0460, L500.4050, L100.0100, L3890.6301, L509.3001 #### [facility] [address] [place], [address] Platelet mean volume (Bld) [Entitic vol] 10.6 fL Normal 6.2-12.0 [facility] Comment on above: Performed By: #### L 503.6030, L502.0250, L503.6550, L500.4100, L501.9985, L3100.0460, L500.4050, L100.0100, L3890.6301, L509.3001 #### [facility] [address] [place], [address] Platelets (Bld) [#/Vol] 208 10*3/uL Normal 150-450 [facility] Comment on above: Performed By: #### L 503.6030, L502.0250, L503.6550, L500.4100, L501.9985, L3100.0460, L500.4050, L100.0100, L3890.6301, L509.3001 #### [facility] [address] [place], [address] RBC (Bld) [#/Vol] 5.24 10*6/uL Normal 4.6-6.2 [facility] Comment on above: Performed By: #### L 503.6030, L502.0250, L503.6550, L500.4100, L501.9985, L3100.0460, L500.4050, L100.0100, L3890.6301, L509.3001 #### [facility] [address] [place], [place], [id number] RDW SD 39.5 fl Normal 35.1-43.9 [facility] Comment on above: Performed By: #### L 503.6030, L502.0250, L503.6550, L500.4100, L501.9985, L3100.0460, L500.4050, L100.0100, L3890.6301, L509.3001 #### [facility] [address] [place], [place], [id number] WBC (Bld) [#/Vol] 5.7 10*3/uL Normal 4.4-11.0 [facility] Comment on above: Performed By: #### L 503.6030, L502.0250, L503.6550, L500.4100, L501.9985, L3100.0460, L500.4050, L100.0100, L3890.6301, L509.3001 #### [facility] [address] [place], [place], [id number] Calculated very low density lipoprotein (VLDL) cholesterol measurementOrdered By: Tye Laguerre on 01-02-2025 Calculated very low density lipoprotein (VLDL) cholesterol measurement 17 mg/dL 5-40 [facility] Carbon dioxide, total [Moles /volume] in Central venous bloodOrdered By: Tye Laguerre on 01-02-2025 CO2 [Moles/Vol] 23.8 mmol/L 21.0-32.0 [facility] Chloride assayOrdered By: Shane Laguerre on 01-02-2025 Chloride [Moles/Vol] 101 mmol/L 98-[address] [facility] Comprehensive Metabolic Prof ilon 01-02-2025 Albumin [Mass/Vol] 4.8 g/dL Normal 3.5-5.0 [facility] [place] Comment on above: Performed By: #### L 503.6030, L502.0250, L503.6550, L500.4100, L501.9985, L3100.0460, L500.4050, L100.0100, L3890.6301, L509.3001 #### [facility] [address] [place], [address] Albumin/Globulin [Mass ratio] 1.7 {ratio} Normal 0.9-2.4 [facility] Comment on above: Performed By: #### L 503.6030, L502.0250, L503.6550, L500.4100, L501.9985, L3100.0460, L500.4050, L100.0100, L3890.6301, L509.3001 #### [facility] [address] [place], [address] ALK PHOS 47 U/L Normal 40-129 [facility] Comment on above: Performed By: #### L 503.6030, L502.0250, L503.6550, L500.4100, L501.9985, L3100.0460, L500.4050, L100.0100, L3890.6301, L509.3001 #### [facility] [address] [place], [address] ALT [Catalytic activity/Vol] 55 U/L High <=46 [facility] Comment on above: Performed By: #### L 503.6030, L502.0250, L503.6550, L500.4100, L501.9985, L3100.0460, L500.4050, L100.0100, L3890.6301, L509.3001 #### [facility] [address] [place], [address] AST [Catalytic activity/Vol] 29 U/L Normal <=37 [facility] Comment on above: Performed By: #### L 503.6030, L502.0250, L503.6550, L500.4100, L501.9985, L3100.0460, L500.4050, L100.0100, L3890.6301, L509.3001 #### [facility] [address] [place], [address] Bilirubin [Mass/Vol] 2.68 mg/dL High 0.00-1.[address] [facility] Comment on above: Performed By: #### L 503.6030, L502.0250, L503.6550, L500.4100, L501.9985, L3100.0460, L500.4050, L100.0100, L3890.6301, L509.3001 #### [facility] [address] [place], [place], [id number] BUN/CRE 14.0 RATIO Normal 10-20 [facility] Comment on above: Performed By: #### L 503.6030, L502.0250, L503.6550, L500.4100, L501.9985, L3100.0460, L500.4050, L100.0100, L3890.6301, L509.3001 #### [facility] [address] [place], [place], [id number] Calcium [Mass/Vol] 9.9 mg/dL Normal 7.6-11.0 [facility] Comment on above: Performed By: #### L 503.6030, L502.0250, L503.6550, L500.4100, L501.9985, L3100.0460, L500.4050, L100.0100, L3890.6301, L509.3001 #### [facility] [address] [place], [address] Chloride [Moles/Vol] 101 mmol/L Normal 98-[address] [facility] Comment on above: Performed By: #### L 503.6030, L502.0250, L503.6550, L500.4100, L501.9985, L3100.0460, L500.4050, L100.0100, L3890.6301, L509.3001 #### [facility] [address] [place], [address] CO2 [Moles/Vol] 23.8 mmol/L Normal 21.0-32.0 [facility] Comment on above: Performed By: #### L 503.6030, L502.0250, L503.6550, L500.4100, L501.9985, L3100.0460, L500.4050, L100.0100, L3890.6301, L509.3001 #### [facility] [address] [place], [address] Creatinine [Mass/Vol] 1.04 mg/dL Normal 0.70-1.20 [facility] Comment on above: Performed By: #### L 503.6030, L502.0250, L503.6550, L500.4100, L501.9985, L3100.0460, L500.4050, L100.0100, L3890.6301, L509.3001 #### [facility] [address] [place], [place], [id number] GAP 14 Normal 5-15 [facility] Comment on above: Performed By: #### L 503.6030, L502.0250, L503.6550, L500.4100, L501.9985, L3100.0460, L500.4050, L100.0100, L3890.6301, L509.3001 #### [facility] [address] [place], [address] GFR/1.73 sq M.predicted among non-blacks MDRD (S/P/Bld) [Vol rate/Area] 91 mL/min/{1.73_m2} Normal >60 [facility] Comment on above: Result Comment: mL/m in/1.73m2 CKD-EPI Creatinine Equation (2020) Performed By: #### L 503.6030, L502.0250, L503.6550, L500.4100, L501.9985, L3100.0460, L500.4050, L100.0100, L3890.6301, L509.3001 #### [facility] [address] [place], [address] Globulin (S) [Mass/Vol] 2.9 g/dL Normal 2.2-4.2 [facility] Comment on above: Performed By: #### L 503.6030, L502.0250, L503.6550, L500.4100, L501.9985, L3100.0460, L500.4050, L100.0100, L3890.6301, L509.3001 #### [facility] [address] [place], [address] Glucose [Mass/Vol] 87 mg/dL Normal 70-99 [facility] Comment on above: Performed By: #### L 503.6030, L502.0250, L503.6550, L500.4100, L501.9985, L3100.0460, L500.4050, L100.0100, L3890.6301, L509.3001 #### [facility] [address] [place], [address] Potassium [Moles/Vol] 4.0 mmol/L Normal 3.3-5.1 [facility] Comment on above: Performed By: #### L 503.6030, L502.0250, L503.6550, L500.4100, L501.9985, L3100.0460, L500.4050, L100.0100, L3890.6301, L509.3001 #### [facility] [address] [place], [address] Sodium [Moles/Vol] 139 mmol/L Normal 133-145 [facility] [place] Comment on above: Performed By: #### L 503.6030, L502.0250, L503.6550, L500.4100, L501.9985, L3100.0460, L500.4050, L100.0100, L3890.6301, L509.3001 #### [facility] [address] [place], [place], [id number] T PROT 7.7 g/dL Normal 5.9-8.4 [facility] Comment on above: Performed By: #### L 503.6030, L502.0250, L503.6550, L500.4100, L501.9985, L3100.0460, L500.4050, L100.0100, L3890.6301, L509.3001 #### [facility] [address] [place], [address] Urea nitrogen [Mass/Vol] 15 mg/dL Normal 4-19 [facility] Comment on above: Performed By: #### L 503.6030, L502.0250, L503.6550, L500.4100, L501.9985, L3100.0460, L500.4050, L100.0100, L3890.6301, L509.3001 #### [facility] [address] [place], [place], [id number] Eosinophil percentageOrdered By: Tye Laguerre on 01-02-2025 Eosinophils/100 WBC (Bld) 1.4 % 0-5 [facility] Erythrocyte distribution wid th ratioOrdered By: Tye Laguerre on 01-02-2025 Erythrocyte distribution width (RBC) [Ratio] 12.7 % 11.6-14.6 [facility] Erythrocyte distribution wid th standard deviationOrdered By: Tye Laguerre on 01-02-2025 Erythrocyte distribution width (RBC) [Ratio] 39.5 fl 35.1-43.9 [facility] Glomerular filtration rate ( GFR) estimation/1.73 sq m using serum, plasma, or whole bOrdered By: Tye Laguerre on 01-02-2025 GFR/1.73 sq M.predicted among non-blacks MDRD (S/P/Bld) [Vol rate/Area] 91 mL/min/{1.73_m2} >60 [facility] Comment on above: mL/min/1.73m2 CKD-EP I Creatinine Equation (2020) Hematocrit Auto (Bld) [Volum e fraction]Ordered By: Tye Laguerre on 01-02-2025 Hematocrit (Bld) [Volume fraction] 44.9 % 40-54 [facility] Hemoglobin A1con 01-02-2025 HbA1c (Bld) [Mass fraction] 5.5 % Normal <=5.6 [facility] Comment on above: Result Comment: Norm al < 5.7 % Prediabetic 5.7 - 6.4 % Diabetic >or= 6.5 % Please note range changes. Performed By: #### L 503.6030, L502.0250, L503.6550, L500.4100, L501.9985, L3100.0460, L500.4050, L100.0100, L3890.6301, L509.3001 #### [facility] [address] [place], [place], [id number] Hemoglobin A1c percentageOrd ered By: Tye Laguerre on 01-02-2025 HbA1c (Bld) [Mass fraction] 5.5 % <5.7 [facility] Comment on above: Normal < 5.7 % Predi abetic 5.7 - 6.4 % Diabetic >or= 6.5 % Please note range changes. Hemoglobin measurementOrdere d By: Tye Laguerre on 01-02-2025 Hemoglobin (Bld) [Mass/Vol] 15.2 g/dL 13.0-16.5 [facility] Immature granulocytes/100 WB C Auto (Bld)Ordered By: Tye Laguerre on 01-02-2025 Immature granulocytes/100 WBC (Bld) 0.200 % 0.0-0.9 [facility] Comment on above: IG% - Immature Granu locytes (promyelocytes, myelocytes and metamyelocytes) > 1% indicates that a LEFT SHIFT is Present. Iron measurement (mass/mass) Ordered By: Tye Laguerre on 01-02-2025 Iron (Unsp spec) [Mass/Mass] 89 ug/dL 65-175 [facility] L509.3001on 01-02-2025 Testosterone [Mass/Vol] 232.00 ng/dL Low 300-890 [facility] Comment on above: Performed By: #### L 503.6030, L502.0250, L503.6550, L500.4100, L501.9985, L3100.0460, L500.4050, L100.0100, L3890.6301, L509.3001 #### [facility] [address] [place], [place], [id number] LDL calc ser/plasOrdered By: Tye Laguerre on 01-02-2025 Cholesterol in LDL [Mass/Vol] 36 mg/dL [facility] Comment on above: Adadspegut=804-795 m g/dL & Higher Jzff=906 mg/dL or greaterFriedwald Equation for LDL-C Laboratory - Chemistry and C hemistry - challengeOrdered By: Tye Laguerre on 01-02-2025 AST [Catalytic activity/Vol] 29 U/L <38 [facility] Testosterone [Mass/Vol] 232.00 ng/dL Low 300-890 [facility] Lipid Profileon 01-02-2025 CHOL:HDL 2.80 Normal [facility] Comment on above: Performed By: #### L 503.6030, L502.0250, L503.6550, L500.4100, L501.9985, L3100.0460, L500.4050, L100.0100, L3890.6301, L509.3001 #### [facility] [address] [place], [place], [id number] Cholesterol [Mass/Vol] 82 mg/dL Normal <=200 [facility] Comment on above: Result Comment: Chol esterol level, Desirable <200 mg/dL Borderline high cholesterol 200-239 mg/dL High cholesterol >=240 mg/dL Recommendations of the NCEP Adult Treatment Panel for the following risk-cutoff thresholds for the [place] population. Performed By: #### L 503.6030, L502.0250, L503.6550, L500.4100, L501.9985, L3100.0460, L500.4050, L100.0100, L3890.6301, L509.3001 #### [facility] [address] [place], [address] Cholesterol in HDL [Mass/Vol] 29 mg/dL Low [facility] Comment on above: Result Comment: [place] onal Cholesterol Education Program (NCEP) guidelines: <40 mg/dL: Low HDL-cholesterol (major risk factor for CHD) >= 60 mg/dL: High HDL-cholesterol (negative risk factor for CHD) HDL-cholesterol is affected by a number of factors, e.g. smoking, exercise, hormones, sex and age. Performed By: #### L 503.6030, L502.0250, L503.6550, L500.4100, L501.9985, L3100.0460, L500.4050, L100.0100, L3890.6301, L509.3001 #### [facility] [address] [place], [address] Cholesterol in LDL [Mass/Vol] 36 mg/dL Normal [facility] Comment on above: Result Comment: Bord nqblcq=080-115 mg/dL Higher Rgse=439 mg/dL or greater Friedwald Equation for LDL-C Performed By: #### L 503.6030, L502.0250, L503.6550, L500.4100, L501.9985, L3100.0460, L500.4050, L100.0100, L3890.6301, L509.3001 #### [facility] [address] [place], [address] Cholesterol in VLDL [Mass/Vol] 17 mg/dL Normal 5-40 [facility] Comment on above: Performed By: #### L 503.6030, L502.0250, L503.6550, L500.4100, L501.9985, L3100.0460, L500.4050, L100.0100, L3890.6301, L509.3001 #### [facility] [address] [place], [address] Triglyceride [Mass/Vol] 83 mg/dL Normal [facility] [place] Comment on above: Result Comment: The drugs N-Acetylcysteine and Metamizole may falsely depress this assay. Normal range: <150 mg/dL Borderline High: 150-199 mg/dL High: 200-499 mg/dL Very High: >500 mg/dL Performed By: #### L 503.6030, L502.0250, L503.6550, L500.4100, L501.9985, L3100.0460, L500.4050, L100.0100, L3890.6301, L509.3001 #### [facility] [address] [place], [place], [id number] MCV (mean corpuscular volume ) determinationOrdered By: Tye Laguerre on 01-02-2025 MCV (RBC) [Entitic vol] 85.7 fL 80-94 [facility] Mean corpuscular hemoglobin (MCH) determinationOrdered By: Tye Laguerre on 01-02-2025 MCH (RBC) [Entitic mass] 29.0 pg 27.0-32.0 [facility] Mean corpuscular hemoglobin concentration (MCHC) determinationOrdered By: Tye Laguerre on 01-02-2025 MCHC (RBC) [Mass/Vol] 33.9 g/dL 32-36 [facility] Mean platelet volume determi nationOrdered By: Tye Laguerre on 01-02-2025 Platelet mean volume (Bld) [Entitic vol] 10.6 fL 6.2-12.0 [facility] Microalb:Creat Ratio,Random URon 01-02-2025 Creatinine [Mass/Vol] 307.00 mg/dL High 39.00-259.00 [facility] Comment on above: Performed By: #### L 503.6030, L502.0250, L503.6550, L500.4100, L501.9985, L3100.0460, L500.4050, L100.0100, L3890.6301, L509.3001 #### [facility] [address] [place], [place], [address] MALB:CREAT 13.4 mg/g CRE Normal <30 mg/g CRE [facility] Comment on above: Performed By: #### L 503.6030, L502.0250, L503.6550, L500.4100, L501.9985, L3100.0460, L500.4050, L100.0100, L3890.6301, L509.3001 #### [facility] [address] [place], [place], [id number] MICROALBUMIN,UR 41.0 mg/L Normal <20 mg/L [facility] Comment on above: Performed By: #### L 503.6030, L502.0250, L503.6550, L500.4100, L501.9985, L3100.0460, L500.4050, L100.0100, L3890.6301, L509.3001 #### [facility] [address] [facility] [place], [place], [id number] Monocyte percentageOrdered B y: Tye Laguerre on 01-02-2025 Monocytes/100 WBC (Bld) 9.0 % 0-10 [facility] Neutrophil percentageOrdered By: Tye Laguerre on 01-02-2025 Neutrophils/100 WBC (Bld) 58.3 % 47-70 [facility] No Panel InformationOrdered By: Tye Laguerre on 01-02-2025 Unsaturated Iron Binding Capacity 308 ug/dL 228-428 [facility] Nucleated red blood cell per centageOrdered By: Tye Laguerre on 01-02-2025 Nucleated RBC/100 WBC (Bld) [Ratio] 0 % 0-5 [facility] Platelet countOrdered By: Shane Laguerre on 01-02-2025 Platelets (Bld) [#/Vol] 208 10*3/uL 150-450 [facility] Potassium measurement (mass/ volume)Ordered By: Tye Laguerre on 01-02-2025 Potassium (Unsp spec) [Mass/Vol] 4.0 mmol/L 3.3-5.1 [facility] RBC Auto (Bld) [#/Vol]Ordere d By: Tye Laguerre on 01-02-2025 RBC (Bld) [#/Vol] 5.24 10*6/uL 4.6-6.2 [facility] Random urine creatinine vern urement (mass/volume)Ordered By: Tye Laguerre on 01-02-2025 Creatinine Unsp time (U) [Mass/Vol] 307.00 mg/dL High 39.00-259.00 [facility] Screening total cholesterol/ high density lipoprotein (HDL) cholesterol ratioOrdered By: Tye Laguerre on 01-02-2025 Cholesterol.total/Choles terol in HDL [Mass ratio] 2.80 {ratio} [facility] Serum creatinine measurement (mass/volume)Ordered By: Tye Laguerre on 01-02-2025 Creatinine [Mass/Vol] 1.04 mg/dL 0.70-1.20 [facility] Serum globulin measurementOr dered By: Tye Laguerre on 01-02-2025 Globulin (S) [Mass/Vol] 2.9 g/dL 2.2-4.2 [facility] Serum glucose measurement (m ass/volume)Ordered By: Tye Laguerre on 01-02-2025 Glucose [Mass/Vol] 87 mg/dL 70-99 [facility] [place] Serum or plasma alanine faulkner otransferase (ALT) measurementOrdered By: Tye Laguerre on 01-02-2025 ALT [Catalytic activity/Vol] 55 U/L High <47 [facility] Serum or plasma albumin vern urement (mass/volume)Ordered By: Tye Laguerre on 01-02-2025 Albumin [Mass/Vol] 4.8 g/dL 3.5-5.0 [facility] Serum or plasma albumin/glob ulin mass ratioOrdered By: Tye Laguerre on 01-02-2025 Albumin/Globulin [Mass ratio] 1.7 {ratio} 0.9-2.4 [facility] Serum or plasma alkaline oli sphatase measurementOrdered By: Tye Laguerre on 01-02-2025 ALP [Catalytic activity/Vol] 47 U/L 40-129 [facility] Serum or plasma calcium vren urement (mass/volume)Ordered By: Tye Laguerre on 01-02-2025 Calcium [Mass/Vol] 9.9 mg/dL 7.6-11.0 [facility] Serum or plasma cholesterol in HDL measurement (mass/volume)Ordered By: Tye Laguerre on 01-02-2025 Cholesterol in HDL [Mass/Vol] 29 mg/dL Low >40 [facility] Comment on above: National Cholesterol Education Program (NCEP) guidelines:<40 mg/dL: Low HDL-cholesterol (major risk factor for CHD)>= 60 mg/dL: High HDL-cholesterol (negative risk factor for CHD)HDL-cholesterol is affected by a number of factors, e.g. smoking, exercise, hormones, sex and age. Serum or plasma cholesterol measurement (mass/volume)Ordered By: Tye Laguerre on 01-02-2025 Cholesterol [Mass/Vol] 82 mg/dL <201 [facility] Comment on above: Cholesterol level, D esirable <200 mg/dLBorderline high cholesterol 200-239 mg/dLHigh cholesterol >=240 mg/dLRecommendations of the NCEP Adult Treatment Panel for the following risk-cutoff thresholds for the [place] population. Serum or plasma ferritin yen surement (mass/volume)Ordered By: Tye Laguerre on 01-02-2025 Ferritin [Mass/Vol] 735 ng/mL High 37-417 [facility] Serum or plasma iron saturat ion measurement (mass fraction)Ordered By: Tye Laguerre on 01-02-2025 Iron saturation [Mass fraction] 22.0 % 9-55 [facility] Serum or plasma non-glucuron idated bilirubin measurement (mass/volume)Ordered By: Tye Laguerre on 01-02-2025 Bilirubin.indirect [Mass/Vol] 2.11 mg/dL High 0.00-1.00 [facility] Serum or plasma urea nitroge n measurement (mass/volume)Ordered By: Tye Laguerre on 01-02-2025 Urea nitrogen [Mass/Vol] 15 mg/dL 4-19 [facility] Sodium levelOrdered By: Tye Laguerre on 01-02-2025 Sodium [Moles/Vol] 139 mmol/L 133-145 [facility] Total proteinOrdered By: Sophia Laguerre on 01-02-2025 Protein [Mass/Vol] 7.7 g/dL 5.9-8.4 [facility] Triglycerides measurementOrd ered By: Tye Laguerre on 01-02-2025 Triglyceride [Mass/Vol] 83 mg/dL <199 [facility] [place] Comment on above: The drugs N-Acetylcy steine and Metamizole may falsely depress this assay. Normal range: <150 mg/dLBorderline High: 150-199 mg/dLHigh: 200-499 mg/dLVery High: >500 mg/dL Urine albumin measurement wi detection limit of 20 mg/L or less (mass/volume)Ordered By: Tye Shade on 01-02-2025 Albumin DL <= 20 mg/L (U) [Mass/Vol] 41.0 mg/L <20 mg/L [facility] White blood cell (WBC) count Ordered By: Tye Laguerre on 01-02-2025 WBC (Bld) [#/Vol] 5.7 10*3/uL 4.4-11.0 [facility] PSA,Total - Annual Screenon 05-22-2024 PSA,TOT SCREEN 0.81 ng/mL Normal 0.00-4.00 [facility] Comment on above: Result Comment: This test was performed using the TPSA assay method for the [employer] chemistry system. Values obtained with different assay methods cannot be used interchangably. When changing PSA assays in the course of monitoring a patient, additional sequential testing should be carried out to confirm baseline values. Performed By: #### L 503.6030, L502.0250, L503.6550, L500.4100, L501.9985, L3100.0460, L500.4050, L100.0100, L3890.6301, L509.3001 #### [facility] [address] [place], [place], [address] CT ABD/PEL WO IVCONon 2023 CT ABD/PEL WO IVCON * * *Final Report* * * DATE OF EXAM: Sep 13 2023 10:58AM [facility] 0531 - CT ABD/PEL WO IVCON / PROCEDURE REASON: N20.9 R31.9 * * * * Physician Interpretation * * * * EXAMINATION: CT ABDOMEN AND PELVIS WITHOUT IV CONTRAST CLINICAL HISTORY: Hematuria TECHNIQUE: Non-IV contrast imaging of the abdomen and pelvis was performed using standard technique, scanning from just above the dome of the diaphragm to the symphysis pubis. Unenhanced imaging is limited for the evaluation of some intra-abdominal and pelvic pathology. MQ: CTAPWO_3 Contrast: IV: None CT Radiation dose: Integrated Dose-length product (DLP) for this visit = 910 mGy*cm. CT Dose Reduction Employed: Automated exposure control(AEC) and iterative recon COMPARISON: None. RESULT: Abdomen / Pelvis: Liver: Unremarkable unenhanced liver. Biliary: Gallbladder present without evidence of radiopaque stones or wall thickening. No biliary ductal dilation. Spleen: No splenomegaly. 1.3 cm hypodense splenic lesion (5, 33). Pancreas: Unremarkable. Adrenals: No mass. Kidneys: No calculus, hydronephrosis or finding to suggest a cyst or mass in the unenhanced kidney. GI Tract: Small amount of oral contrast material seen within the distal thoracic esophagus most compatible with gastroesophageal reflux. No bowel dilation. Normal appendix. Lymph Nodes: No lymphadenopathy. Mesentery/peritoneum : No ascites. Retroperitoneum: No mass. Vasculature: Arterial atherosclerotic disease without aneurysm. Pelvis: Two bladder calculi are seen layering within the dependent portion of the urinary bladder and measure 1.4 cm in size and 1.5 cm in size. Prostate measures 4.5 cm in maximum transverse dimension. Bones/Soft Tissues: Mild degenerative changes most pronounced at the lumbosacral junction. A few scattered pelvic bone islands. Lower thorax: Subcentimeter calcified right lower lobe granuloma. Localizer images: No additional findings. IMPRESSION: 1. Two bladder calculi measuring up to 1.5 cm in size. 2. No hydronephrosis. 3. Indeterminate 1.3 cm hypodense splenic lesion though statistically likely a lymphangioma or hemangioma. 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 [facility] Serum or plasma uric acid me asurement (mass/volume)Ordered By: Tye Laguerre on 05-05-2023 Urate [Mass/Vol] 2.6 mg/dL 3.5-7.2 [facility] Comment on above: The drugs N-Acetylcy steine and Metamizole may falsely depress this assay. Whole blood hemoglobin A1c/t otal hemoglobin ratio (mass fraction)Ordered By: Tye Laguerre on 05-05-2023 HbA1c (Bld) [Mass fraction] 5.4 % 3.8-5.6 [facility] Comment on above: Normal < 5.7 % Predi abetic 5.7 - 6.4 % Diabetic >or= 6.5 % Please note range changes. Absolute lymphocyte countOrd ered By: Roselyn Lerma on 05-03-2023 Lymphocytes Auto (Unsp spec) [#/Vol] 2.67 10*3/uL 0.83-4.51 [facility] Basophil percentageOrdered B y: Roselyn Lerma on 05-03-2023 Basophil percentage 0-5 SEEN /hpf 0-5 [facility] Basophils/100 WBC (Bld) 0.7 % 0-1 [facility] Chloride [Moles/Vol] 107 mmol/L 98-[address] [facility] Eosinophils/100 WBC (Bld) 2.1 % 0-5 [facility] Glucose [Mass/Vol] 158 mg/dL 74-106 [facility] [place] Comment on above: Fasting Glucose resu lt greater than or equal to 126 mg/dL suggests DIABETES MELLITUS per A.D.A. criteria. Neutrophils (Bld) [#/Vol] 3.9 10*3/uL 2.0-7.7 [facility] Neutrophils/100 WBC (Bld) 54.0 % 47-70 [facility] Potassium [Moles/Vol] 3.7 mmol/L 3.5-5.1 [facility] Sodium [Moles/Vol] 140 mmol/L 136-145 [facility] WBC (Bld) [#/Vol] 7.2 10*3/uL 4.4-11.0 [facility] Bilirubin Test strip Ql (U)O rdered By: Roselyn Lerma on 05-03-2023 Bilirubin Ql (U) Negative Negative [facility] Blood erythrocytes count (nu mber/volume)Ordered By: Roselyn Lerma on 05-03-2023 RBC (Bld) [#/Vol] 5.00 10*6/uL 4.6-6.2 [facility] Blood hemoglobin measurement (mass/volume)Ordered By: Roselyn Lerma on 05-03-2023 Hemoglobin (Bld) [Mass/Vol] 14.8 g/dL 13.0-16.5 [facility] Blood lymphocytes/100 leukoc ytesOrdered By: Roselyn Lerma on 05-03-2023 Lymphocytes/100 WBC (Bld) 37.1 % 19-41 [facility] Blood monocytes/100 leukocyt esOrdered By: Roselyn Lerma on 05-03-2023 Monocytes/100 WBC (Bld) 5.8 % 0-10 [facility] Blood platelet mean volumeOr dered By: Roselyn Lerma on 05-03-2023 Platelet mean volume (Bld) [Entitic vol] 9.8 fL 6.2-12.0 [facility] Culture, urineOrdered By: Ros Lerma on 05-03-2023 Bacteria identified Cx Nom (U) Culture exhibits no growth. [facility] Determination of erythrocyte mean corpuscular volume (MCV)Ordered By: Roselyn Lerma on 05-03-2023 MCV (RBC) [Entitic vol] 87.2 fL 80-94 [facility] Hematocrit Auto (Bld) [Volum e fraction]Ordered By: Roselyn Lerma on 05-03-2023 Hematocrit (Bld) [Volume fraction] 43.6 % 40-54 [facility] Ketones Test strip Ql (U)Ord ered By: Roselyn Lerma on 05-03-2023 Ketones Ql (U) 5 mg/dl Negative [facility] - Chemistry and C hemistry - challengeOrdered By: Roselyn Lerma on 05-03-2023 CO2 [Moles/Vol] 26.0 mmol/L 21.0-32.0 [facility] Urea nitrogen/Creatinine [Mass ratio] 16.1 mg/mg 10-20 [facility] - Hematology and Cell countsOrdered By: Roselyn Lerma on 05-03-2023 Erythrocyte distribution width (RBC) [Entitic vol] 41.0 fL 35.1-43.9 [facility] Erythrocyte distribution width (RBC) [Ratio] 13.0 % 11.6-14.6 [facility] Immature granulocytes/100 WBC (Bld) 0.300 % 0.0-0.9 [facility] Comment on above: IG% - Immature Granu locytes (promyelocytes, myelocytes and metamyelocytes) > 1% indicates that a LEFT SHIFT is Present. MCH (RBC) [Entitic mass] 29.6 pg 27.0-32.0 [facility] Nucleated RBC/100 WBC (Bld) [Ratio] 0 % 0-5 [facility] MCHC Auto (RBC) [Mass/Vol]Or dered By: Roselyn Lerma on 05-03-2023 MCHC (RBC) [Mass/Vol] 33.9 g/dL 32-36 [facility] Mucus LM Ql (Urine sed)Order ed By: Roselyn Lerma on 05-03-2023 Mucus Ql (Urine sed) 0 SEEN /hpf [facility] Nitrite Test strip Ql (U)Ord ered By: Roselyn Lerma on 05-03-2023 Nitrite Ql (U) Negative Negative [facility] No Panel InformationOrdered By: Roselyn Lerma on 05-03-2023 Estimated Creatinine Clearance Calc 99.36 ml/min [facility] Estimated GFR (MDRD) Amer 105 mL/min >60 [facility] Comment on above: GFR Calc Estimated GFR (MDRD) Non-Af Amer 87 mL/min >60 [facility] Comment on above: Non- GFR Calc Platelets bldOrdered By: Tita Lerma on 05-03-2023 Platelets (Bld) [#/Vol] 206 10*3/uL 150-450 [facility] Protein Test strip Ql (U)Ord ered By: Roselyn Lerma on 05-03-2023 Protein Ql (U) 500 mg/dl Negative [facility] Serum or plasma calcium vern urement (mass/volume)Ordered By: Roselyn Lerma on 05-03-2023 Calcium [Mass/Vol] 9.3 mg/dL 8.5-10.1 [facility] Serum or plasma creatinine m easurement (mass/volume)Ordered By: Roselyn Lerma on 05-03-2023 Creatinine [Mass/Vol] 1.00 mg/dL 0.70-1.30 [facility] Comment on above: The validity of the calculated GFR & GFRAA in patients over 70 years has not been determined. Clinical correlation is essential. Serum or plasma urea nitroge n measurement (mass/volume)Ordered By: Roselyn Lerma on 05-03-2023 Urea nitrogen [Mass/Vol] 16 mg/dL 7-18 [facility] Squamous epithelial cells de tection in urine sediment by light microscopyOrdered By: Roselyn Lerma on 05-03-2023 Epithelial cells.squamous LM Ql (Urine sed) 0 SEEN /hpf 0-5 [facility] Thin prep Papanicolaou smear with manual screeningOrdered By: Roselyn Lerma on 05-03-2023 Thin prep Papanicolaou smear with manual screening 7 5-15 [facility] Urine blood detectionOrdered By: Roselyn Lerma on 05-03-2023 RBC Ql (U) 250 /ul Negative [facility] RBC Ql (U) 50-100 SEEN /hpf 0-5 [facility] Urine clarityOrdered By: Tita Lerma on 05-03-2023 Clarity (U) Turbid Clear [facility] Urine color determinationOrd ered By: Roselyn Lerma on 05-03-2023 Color (U) Red Yellow [facility] Urine glucose detectionOrder ed By: Roselyn Lerma on 05-03-2023 Glucose Ql (U) Normal mg/dl Normal [facility] Urine leukocyte esterase det ection by dipstickOrdered By: Roselyn Lerma on 05-03-2023 Leukocyte esterase Test strip Ql (U) 25 /ul Negative [facility] Urine pHOrdered By: Roselyn mares on 05-03-2023 pH (U) 6.5 [pH] 5.0 - 8.0 [facility] Urine sediment bacteria coun t by microscopy (number/high power field)Ordered By: Roselyn Lerma on 05-03-2023 Bacteria LM.HPF (Urine sed) [#/Area] 1 /[HPF] None Seen [facility] Urine specific gravity measu rementOrdered By: Roselyn Lerma on 05-03-2023 Specific gravity (U) [Rel density] 1.025 1.002-1.030 [facility] Urobilinogen Auto test strip Ql (U)Ordered By: Roselyn Lerma on 05-03-2023 Urobilinogen Ql (U) Normal mg/dl Normal [facility] Color of specimen determinat ionOrdered By: Dr. Laguerre on 08-18-2022 Color (Unsp spec) [place] [facility] - Miscellaneous t estsOrdered By: Dr. Laguerre on 08-18-2022 Service comment (Unsp spec) [Interp] See comment [facility] Comment on above: Physician questions regarding Calculi Analysis contact[facility] at: [phone]. Calculi report will follow via computer, mail or courierdelivery. Measurement of weight of sto neOrdered By: Dr. Laguerre on 08-18-2022 Weight (Stone) 53 mg [facility] No Panel InformationOrdered By: Dr. Laguerre on 08-18-2022 Stone Analysis (T) See comment [facility] Comment on above: Percentage (Represen ts the % composition) Stone Calcium Oxalate Monohydrate 20 % [facility] Origin of StoneOrdered By: Royer Laguerre on 08-18-2022 Origin Nom (Stone) Not Provided [facility] Size of stoneOrdered By: Dr. Laguerre on 08-18-2022 Size (Stone) [Entitic vol] 3x3 mm [facility] Comment on above: Multiple pieces rece ived. Dimensions of the largest piecereported. Thin prep Papanicolaou smear with manual screeningOrdered By: Dr. Laguerre on 08-18-2022 Thin prep Papanicolaou smear with manual screening See comment [facility] Comment on above: Photograph will foll ow under a separate cover. Uric acid crystals detection in stone by infrared spectroscopyOrdered By: Dr. Laguerre on 08-18-2022 Urate crystals Infrared spectroscopy Ql (Stone) 80 % [facility] Basophil percentageon 2021 Cholesterol [Mass/Vol] 144 mg/dL <200 [facility] Work Phone: Comment on above: <200 mg/dL Desirable 200-240 mg/dL Borderline >240 mg/dL High Risk Triglyceride [Mass/Vol] 234 mg/dL <199 [facility] Work Phone: Comment on above: The drugs N-Acetylcy steine and Metamizole may falsely depress this assay.Serum Triglycerides Reference Interval Normal <150 mg/dL Borderline high 150 - 199 mg/dL High 200 - 499 mg/dL Very High > or = 500 mg/dL Iron measurement (mass/mass) on 04-06-2022 Iron (Unsp spec) [Mass/Mass] 107 ug/dL 65-175 [facility] Work Phone: Laboratory - Chemistry and C hemistry - challengeon 04-06-2022 Transferrin [Mass/Vol] 305 mg/dL 177-329 [facility] Work Phone: Comment on above: Performed at: [address] [id number] Director: Francois Valencia PhD, Phone: [phone] Serum or plasma cholesterol in HDL measurement (mass/volume)on 04-06-2022 Cholesterol in HDL [Mass/Vol] 31 mg/dL >40 [facility] Work Phone: Comment on above: The drugs N-Acetylcy steine and Metamizole may falsely depress this assay. Reference Range HDL <40 mg/dL Low HDL Cholesterol HDL >or= 60 mg/dL High HDL Cholesterol Serum or plasma cholesterol in VLDL measurement (mass/volume)on 04-06-2022 Cholesterol in VLDL [Mass/Vol] 47 mg/dL 5-40 [facility] Work Phone: Serum or plasma ferritin yen surement (mass/volume)on 04-06-2022 Ferritin [Mass/Vol] 496 ng/mL 26-388 [facility] Work Phone: [phone] Serum or plasma low density lipoprotein (LDL) cholesterol measurement (mass/volume)on 04-06-2022 Cholesterol in LDL [Mass/Vol] 66 mg/dL 0-130 [facility] Work Phone: Whole blood hemoglobin A1c/t otal hemoglobin ratio (mass fraction)on 04-06-2022 HbA1c (Bld) [Mass fraction] 6.1 % 3.8-5.6 [facility] Work Phone: Comment on above: Normal < 5.7 % Predi abetic 5.7 - 6.4 % Diabetic >or= 6.5 % Please note range changes. Basophil percentageon 2021 Testosterone [Mass/Vol] 257 ng/dL [phone] [facility] Work Phone: Comment on above: Adult male reference interval is based on a population ofhealthy nonobese males (BMI <30) between 19 and 39 yearsold. michaela Hamm.al. JCEM 2017,102;[id number]. PMID:[id number]. Free testosterone percentage on 12-11-2021 Testosterone Free/Testosterone.total [Mass fraction] 3.00 % 1.50-4.20 [facility] Work Phone: Comment on above: Performed at: [address] [id number] Director: Francois Valencia PhD, Phone: [phone] at: [facility] [address] [id number] Director: Manjula Royal MD, Phone: [phone] Serum or plasma ferritin yen surement (mass/volume)on 12-11-2021 Ferritin [Mass/Vol] 544 ng/mL 26-388 [facility] Work Phone: Serum or plasma testosterone free measurement (mass/volume)on 12-11-2021 Testosterone Free [Mass/Vol] 7.71 ng/dL 5.00-21.00 [facility] Work Phone: Basophil percentageon 2021 Bilirubin [Mass/Vol] 1.50 mg/dL 0.20-1.[address] [facility] Work Phone: Comment on above: For patients on eltr ombopag therapy, use of Dimension Widener TBIL is not recommended. Chloride [Moles/Vol] 106 mmol/L 98-[address] [facility] Work Phone: Cholesterol [Mass/Vol] 190 mg/dL <200 [facility] Work Phone: [phone] Comment on above: <200 mg/dL Desirable 200-240 mg/dL Borderline >240 mg/dL High Risk Glucose [Mass/Vol] 108 mg/dL 74-106 [facility] [place] Work Phone: [phone] Comment on above: Fasting Glucose resu lt from 100 to 125 mg/dL suggests IMPAIRED HOMEOSTASIS per A.D.A. criteria. Potassium [Moles/Vol] 3.8 mmol/L 3.5-5.1 [facility] Work Phone: [phone] Protein [Mass/Vol] 7.8 g/dL 6.4-8.2 [facility] Work Phone: [phone] Sodium [Moles/Vol] 139 mmol/L 136-145 [facility] Work Phone: [phone] Triglyceride [Mass/Vol] 138 mg/dL <199 [facility] Work Phone: [phone] Comment on above: The drugs N-Acetylcy steine and Metamizole may falsely depress this assay.Serum Triglycerides Reference Interval Normal <150 mg/dL Borderline high 150 - 199 mg/dL High 200 - 499 mg/dL Very High > or = 500 mg/dL Laboratory - Chemistry and C hemistry - challengeon 11-27-2021 ALP [Catalytic activity/Vol] 50 U/L 45-117 [facility] Work Phone: ALT [Catalytic activity/Vol] 60 U/L 16-61 [facility] Work Phone: [phone] CO2 [Moles/Vol] 29.0 mmol/L 21.0-32.0 [facility] Work Phone: [phone] Globulin (S) [Mass/Vol] 3.5 g/dL 2.2-4.2 [facility] [place] Work Phone: [phone] Urea nitrogen/Creatinine [Mass ratio] 15.4 mg/mg 10-20 [facility] Work Phone: No Panel Informationon 11-27 Estimated GFR (MDRD) Amer 109 mL/min >60 [facility] Work Phone: Comment on above: GFR Calc Estimated GFR (MDRD) Non-Af Amer 90 mL/min >60 [facility] Work Phone: Comment on above: Non- GFR Calc Urine Microalbumin/Creatinine Ratio 15.0 mg/g CRE <30 [facility] Work Phone: Serum or plasma albumin vern urement (mass/volume)on 11-27-2021 Albumin [Mass/Vol] 4.3 g/dL 3.2-5.0 [facility] Work Phone: Serum or plasma albumin/glob ulin mass ratioon 11-27-2021 Albumin/Globulin [Mass ratio] 1.2 {ratio} 0.9-2.4 [facility] Work Phone: Serum or plasma calcium vern urement (mass/volume)on 11-27-2021 Calcium [Mass/Vol] 9.1 mg/dL 8.5-10.1 [facility] [place] Work Phone: Serum or plasma cholesterol in HDL measurement (mass/volume)on 11-27-2021 Cholesterol in HDL [Mass/Vol] 30 mg/dL >40 [facility] Work Phone: Comment on above: The drugs N-Acetylcy steine and Metamizole may falsely depress this assay. Reference Range HDL <40 mg/dL Low HDL Cholesterol HDL >or= 60 mg/dL High HDL Cholesterol Serum or plasma cholesterol in VLDL measurement (mass/volume)on 11-27-2021 Cholesterol in VLDL [Mass/Vol] 28 mg/dL 5-40 [facility] Work Phone: Serum or plasma creatinine m easurement (mass/volume)on 11-27-2021 Creatinine [Mass/Vol] 0.97 mg/dL 0.70-1.30 [facility] Work Phone: Comment on above: The validity of the calculated GFR & GFRAA in patients over 70 years has not been determined. Clinical correlation is essential. Serum or plasma low density lipoprotein (LDL) cholesterol measurement (mass/volume)on 11-27-2021 Cholesterol in LDL [Mass/Vol] 132 mg/dL 0-130 [facility] Work Phone: Serum or plasma urea nitroge n measurement (mass/volume)on 11-27-2021 Urea nitrogen [Mass/Vol] 15 mg/dL 7-18 [facility] Work Phone: Thin prep Papanicolaou smear with manual screeningon 11-27-2021 Thin prep Papanicolaou smear with manual screening 19 U/L 15-37 [facility] Work Phone: Thin prep Papanicolaou smear with manual screening 4 5-15 [facility] Work Phone: Thin prep Papanicolaou smear with manual screening 35.8 mg/L NO RANGE EST. [facility] Work Phone: Urine creatinine measurement (mass/volume)on 11-27-2021 Creatinine (U) [Mass/Vol] 239.00 mg/dL NO RANGE EST. [facility] Work Phone: Whole blood hemoglobin A1c/t otal hemoglobin ratio (mass fraction)on 11-27-2021 HbA1c (Bld) [Mass fraction] 6.1 % 3.8-5.6 [facility] Work Phone: Comment on above: Normal < 5.7 % Predi abetic 5.7 - 6.4 % Diabetic >or= 6.5 % Please note range changes. Glucose Glucometer (BldC) [M ass/Vol]on 08-23-2021 Glucose [Mass/Vol] 319 mg/dL 74-106 [facility] [place] Work Phone: Comment on above: MANAGEMENT OF PATIEN T CARE PER NURSING PROTOCOL Glucose [Mass/Vol] 385 mg/dL 74-106 [facility] [place] Work Phone: Comment on above: MANAGEMENT OF PATIEN T CARE PER NURSING PROTOCOL Absolute lymphocyte counton 08-22-2021 Lymphocytes Auto (Unsp spec) [#/Vol] 2.51 10*3/uL 0.83-4.51 [facility] Work Phone: Basophil percentageon 2021 Chloride [Moles/Vol] 100 mmol/L 98-[address] [facility] Work Phone: Glucose [Mass/Vol] 439 mg/dL 74-106 [facility] [place] Work Phone: Comment on above: Glucose result great er than or equal to 200 mg/dLsuggests DIABETES MELLITUS per A.D.A. criteria. Potassium [Moles/Vol] 4.2 mmol/L 3.5-5.1 [facility] Work Phone: Comment on above: Moderate Hemolysis, Result may be falsely increased. Sodium [Moles/Vol] 135 mmol/L 136-145 [facility] [place] Work Phone: Basophil percentage 0 SEEN /hpf 0-[address] [facility] Work Phone: Basophils/100 WBC (Bld) 1.1 % 0-1 [facility] Work Phone: Eosinophils/100 WBC (Bld) 1.7 % 0-5 [facility] Work Phone: Neutrophils (Bld) [#/Vol] 3.2 10*3/uL 2.0-7.7 [facility] Work Phone: Neutrophils/100 WBC (Bld) 49.6 % 47-70 [facility] Work Phone: WBC (Bld) [#/Vol] 6.4 10*3/uL 4.4-11.0 [facility] Work Phone: Bilirubin Test strip Ql (U)o n 08-22-2021 Bilirubin Ql (U) Negative Negative [facility] Work Phone: Blood erythrocytes count (nu mber/volume)on 08-22-2021 RBC (Bld) [#/Vol] 5.87 10*6/uL 4.6-6.2 [facility] Work Phone: Blood hemoglobin measurement (mass/volume)on 08-22-2021 Hemoglobin (Bld) [Mass/Vol] 18.0 g/dL 13.0-16.5 [facility] Work Phone: Comment on above: CRITICAL VALUE VERIF IED. CALLED TO [id number] Romana Arriola Workman.RESULTS READ BACK BY SAME . Blood lymphocytes/100 leukoc yteson 08-22-2021 Lymphocytes/100 WBC (Bld) 39.2 % 19-41 [facility] Work Phone: Blood monocytes/100 leukocyt eson 08-22-2021 Monocytes/100 WBC (Bld) 8.1 % 0-10 [facility] Work Phone: [phone] Blood platelet mean volumeon 08-22-2021 Platelet mean volume (Bld) [Entitic vol] 11.5 fL 6.2-12.0 [facility] Work Phone: Determination of erythrocyte mean corpuscular volume (MCV)on 08-22-2021 MCV (RBC) [Entitic vol] 83.0 fL 80-94 [facility] Work Phone: [phone] Hematocrit Auto (Bld) [Volum e fraction]on 08-22-2021 Hematocrit (Bld) [Volume fraction] 48.7 % 40-54 [facility] Work Phone: [phone] Ketones Test strip Ql (U)on 08-22-2021 Ketones Ql (U) 50 mg/dl Negative [facility] Work Phone: [phone] Laboratory - Chemistry and C hemistry - challengeon 08-22-2021 CO2 [Moles/Vol] 26.0 mmol/L 21.0-32.0 [facility] Work Phone: [phone] Urea nitrogen/Creatinine [Mass ratio] 15.1 mg/mg 10-20 [facility] Work Phone: [phone] Laboratory - Hematology and Cell countson 08-22-2021 Erythrocyte distribution width (RBC) [Entitic vol] 37.8 fL 35.1-43.9 [facility] Work Phone: [phone] Erythrocyte distribution width (RBC) [Ratio] 12.5 % 11.6-14.6 [facility] Work Phone: [phone] Immature granulocytes/100 WBC (Bld) 0.300 % 0.0-0.9 [facility] Work Phone: [phone] Comment on above: IG% - Immature Granu locytes (promyelocytes, myelocytes and metamyelocytes) > 1% indicates that a LEFT SHIFT is Present. MCH (RBC) [Entitic mass] 30.7 pg 27.0-32.0 [facility] Work Phone: [phone] Nucleated RBC/100 WBC (Bld) [Ratio] 0 % 0-5 [facility] Work Phone: [phone] MCHC Auto (RBC) [Mass/Vol]on 08-22-2021 MCHC (RBC) [Mass/Vol] 37.0 g/dL 32-36 [facility] Work Phone: [phone] Mucus LM Ql (Urine sed)on Mucus Ql (Urine sed) 0 SEEN /hpf [facility] Work Phone: [phone] Nitrite Test strip Ql (U)on 08-22-2021 Nitrite Ql (U) Negative Negative [facility] Work Phone: [phone] Panel Informationon 08-22 Estimated Creatinine Clearance Calc 94.69 ml/min [facility] Work Phone: [phone] Estimated GFR (MDRD) Amer 99 mL/min >60 [facility] Work Phone: [phone] Comment on above: GFR Calc Estimated GFR (MDRD) Non-Af Amer 82 mL/min >60 [facility] Work Phone: [phone] Comment on above: Non- GFR Calc Platelets bldon 08-22-2021 Platelets (Bld) [#/Vol] 234 10*3/uL 150-450 [facility] Work Phone: [phone] Protein Test strip Ql (U)on 08-22-2021 Protein Ql (U) 30 mg/dl Negative [facility] Work Phone: [phone] Serum or plasma calcium vern urement (mass/volume)on 08-22-2021 Calcium [Mass/Vol] 9.7 mg/dL 8.5-10.1 [facility] [place] Work Phone: Serum or plasma creatinine m easurement (mass/volume)on 08-22-2021 Creatinine [Mass/Vol] 1.06 mg/dL 0.70-1.30 [facility] Work Phone: Comment on above: The validity of the calculated GFR & GFRAA in patients over 70 years has not been determined. Clinical correlation is essential. Serum or plasma urea nitroge n measurement (mass/volume)on 08-22-2021 Urea nitrogen [Mass/Vol] 16 mg/dL 7-18 [facility] Work Phone: Squamous epithelial cells de tection in urine sediment by light microscopyon 08-22-2021 Epithelial cells.squamous LM Ql (Urine sed) 0 SEEN /hpf 0-5 [facility] Work Phone: Thin prep Papanicolaou smear with manual screeningon 08-22-2021 Thin prep Papanicolaou smear with manual screening 9 - [facility] Work Phone: Urine blood detectionon 08-08 RBC Ql (U) 10 /ul Negative [facility] Work Phone: [phone] RBC Ql (U) 0 SEEN /hpf 0-5 [facility] Work Phone: Urine clarityon 08-22-2021 Clarity (U) Clear Clear [facility] Work Phone: Urine color determinationon 08-22-2021 Color (U) Yellow Yellow [facility] Work Phone: Urine glucose detectionon Glucose Ql (U) 1000 mg/dl Normal [facility] Work Phone: Urine leukocyte esterase det ection by dipstickon 08-22-2021 Leukocyte esterase Test strip Ql (U) Negative Negative [facility] Work Phone: Urine pHon 08-22-2021 pH (U) 5.0 [pH] 5.0 - 8.0 [facility] Work Phone: Urine sediment bacteria coun t by microscopy (number/high power field)on 08-22-2021 Bacteria LM.HPF (Urine sed) [#/Area] 0 /[HPF] None Seen [facility] Work Phone: Urine specific gravity measu rementon 08-22-2021 Specific gravity (U) [Rel density] 1.015 1.002-1.030 [facility] Work Phone: Urobilinogen Auto test strip Ql (U)on 08-22-2021 Urobilinogen Ql (U) Normal mg/dl Normal [facility] Work Phone: Vital Signs Date Time Vital Sign Value Performing Clinician Faci lity 05-03-2023 21:07-0500 Diastolic blood pressure 78 mm[Hg] [facility] 05-03-2023 21:07-0500 Heart rate 85 /min [facility] 05-03-2023 21:07-0500 Respiratory rate 16 /min [facility] 05-03-2023 21:07-0500 SaO2% (BldA) [Mass fraction] 95 % [facility] 05-03-2023 21:07-0500 Systolic blood pressure 123 mm[Hg] [facility] 05-03-2023 19:08-0500 Body height 177.8 cm [facility] 05-03-2023 19:08-0500 Body mass index (BMI) [Ratio] 34.9 kg/m2 [facility] 05-03-2023 19:08-0500 Body temperature 97.1 [degF] [facility] 05-03-2023 19:08-0500 Body weight 110.42 kg [facility] 09-12-2022 20:14-0400 Respiratory rate 16 /min [facility] 09-12-2022 20:14-0400 SaO2% (BldA) [Mass fraction] 98 % [facility] 09-12-2022 19:26-0400 Body height 157.48 cm [facility] 09-12-2022 19:26-0400 Body mass index (BMI) [Ratio] 44.9 kg/m2 [facility] 09-12-2022 19:26-0400 Body temperature 97.8 [degF] [facility] 09-12-2022 19:26-0400 Body weight 111.24 kg [facility] 09-12-2022 19:26-0400 Diastolic blood pressure 77 mm[Hg] [facility] 09-12-2022 19:26-0400 Heart rate 110 /min [facility] 09-12-2022 19:26-0400 Systolic blood pressure 120 mm[Hg] [facility] 08-23-2021 00:53-0400 Diastolic blood pressure 78 mm[Hg] [facility] Work Phone: 08-23-2021 00:53-0400 Heart rate 90 /min [facility] Work Phone: 08-23-2021 00:53-0400 Respiratory rate 17 /min [facility] Work Phone: 08-23-2021 00:53-0400 SaO2% (BldA) [Mass fraction] 98 % [facility] Work Phone: 08-23-2021 00:53-0400 Systolic blood pressure 144 mm[Hg] [facility] Work Phone: 08-22-2021 22:18-0400 Body height 177.8 cm [facility] Work Phone: 08-22-2021 22:18-0400 Body mass index (BMI) [Ratio] 40.1 kg/m2 [facility] Work Phone: 08-22-2021 22:18-0400 Body temperature 97.6 [degF] [facility] Work Phone: 08-22-2021 22:18-0400 Body weight 127 kg [facility] Work Phone: Encounters Encounter Date Encounter Type Care Provider Facility Start: 01-22-2025 ambulatory Tye Vegaman Facility: [facility] Start: 01-15-2025 Encounter for genera l adult medical examination without abnormal findings Tye Laguerre [facility] Start: 01-02-2025 End: 01-02-[address] Tye Laguerre DO Work Phone: -Laboratory [facility] Start: 01-02-2025 End: 01-02-[address] Tye Laguerre DO -Laboratory [facility] Start: 01-02-2025 End: 01-02-2025 ambulatory Tye Laguerre Facility:[facility] Start: 05-22-2024 End: 05-22-2024 ambulatory Karl Alex Facility:[facility] Start: 09-13-2023 End: 09-13-2023 ambulatory TYE Gomez [facility] Facility:[facility] Start: 09-13-2023 End: 09-13-2023 Subsequent hospital visit by physician Ct Prep [facility] Cat Scan Start: 09-09-2023 End: 09-09-2023 ambulatory [facility] Work Phone: Start: 09-09-2023 End: 09-09-2023 Patient encounter procedure [facility], Specimen Work Phone: Start: 05-05-2023 End: 05-05-2023 ambulatory [facility] Work Phone: Start: 05-05-2023 End: 05-05-2023 Patient encounter procedure [facility], Nigel Aaronbhavya [facility] Start: 05-03-2023 End: 05-03-2023 Emergency department patient visit [facility] Work Phone: Start: 09-12-2022 End: 09-12-2022 Emergency department patient visit [facility] Start: 08-20-2022 End: 08-20-2022 Patient encounter procedure [facility], Specimen Start: 04-06-2022 End: 04-06-2022 ambulatory [facility] Work Phone: Start: 04-06-2022 End: 04-06-2022 Patient encounter procedure [facility] Start: 12-11-2021 End: 12-11-2021 Patient encounter procedure [facility] Start: 11-27-2021 End: 11-27-2021 Patient encounter procedure [facility] Start: 08-22-2021 End: 08-23-2021 Emergency department patient visit [facility] Procedures Date Procedure Procedure Detail Performing Clinician Start: 01-02-2025 Hepatitis C antibody measurement Dr. Tye Laguerre DO Work Phone: Comment on above: Reactive: Presumptiv e evidence of antibodies to HCV. Follow CDC recommendations for supplemental testing.Non-Reactive: Antibodies to HCV were not detected; does not exclude the possibility of exposure to HCVReactive Results are presumptive evidence of antibodies to HCV. Follow CDC recommendations for supplemental testing.Order confirmation testing: HCV Quant by PCR testing - HCVPCR #[id number] Non Reactive: < 0.8 Equivocal: >/= 0.8 to < 1.0 Reactive: >/= 1.0The CDC requires that a reactive/equivocal HCV antibody result be sent out for confirmation. HCV Quant by PCR testing. Start: 01-02-2025 Total iron binding c apacity measurement Dr. Tye Laguerre DO Work Phone: Start: 01-02-2025 Urine microalbumin/creatinine ratio measurement Dr. Tye Laguerre DO Work Phone: Start: 09-09-2023 Urine culture Start: 05-03-2023 Urine culture Plan of Treatment Date Care Activity Detail Author Start: 09-12-2032 Urine microalbumin profile DTaP,Tdap,Td Vaccine (2 - Td or Tdap) [facility] Start: 01-09-2024 Influenza vaccination Influenz a Vaccine (Season Ended) [facility] Start: 05-10-2023 Behavioral Health Screening Behavioral Health Screening [facility] Start: 05-03-2023 [facility] Start: 05-03-2023 [facility] Start: 05-03-2023 Bacteria identified in Urine by Culture Urine Culture [facility] Start: 01-08-2023 Covid-19 Vaccine ( season) Covid-19 Vaccine () [facility] Start: 04-06-2022 Procedure [facility] Work Phone: Start: 2015 Lipid panel Lipid Screening [facility] Start: 1999 Hepatitis B Vaccine (1 of 3 - 19+ 3-dose series) Hepatitis B Vaccine (1 of 3 - 19+ 3-dose series) [facility] Start: 1998 Hepatitis C screening Hepatitis C Sc reening [facility] Start: 1998 HIV screening HIV Screening [facility] Patient Education [facility] Work Phone: Patient referral [facility] Work Phone: Procedure [facility] Work Phone: Testosterone Free [Mass/volume] in Serum or Plasma [facility] Work Phone: Testosterone measurement [facility] Work Phone: Immunizations Immunization Date Immunization Notes Care Provider Fa cility 09-12-2022 tetanus toxoid, redu jerome diphtheria toxoid, and acellular pertussis vaccine, adsorbed [facility] 02-01-2019 influenza virus vacc ine, unspecified formulation Ct [facility] 01-09-2019 Influenza virus vaccine [facility] Payers Date Payer Category Payer Private Health Insurance [id number] 2024 Self-pay [id number] 2013 Private Health Insurance SURESH HARRIS PPO TPA [id number] 2013-Present [address] [place] [id number] PPO [id number] 2013 Private Health Insurance [id number] Unknown [id number] Unknown [id number] Unknown [id number] Social History Date Type Detail Facility Start: 08-22-2021 End: 05-03-2023 Tobacco smoking status COIS Unknown if ever smoked [facility] Start: 10-18-2019 None [facility] Start: 10-18-2019 With Family [facility] Start: 10-18-2019 Cigarettes [facility] Start: 1980 Sex Assigned At Male [facility] Start: 02-08-2016 End: 10-08-2023 Tobacco smoking status NHIS Ex-smoker [facility] History of tobacco use Current smoker [facility] Start: 02-08-2016 Tobacco use and exposure Smokeless tobacco non-user [facility] Start: 04-10-2017 Alcohol intake Not Asked [facility] Start: 04-06-2020 End: 04-18-2020 History of Social function [facility] Start: 04-06-2020 End: 04-18-2020 Tobacco use panel [facility] National Score (1-100), lower number is lower risk Not on file [facility] Start: 1980 Sex Assigned At Not on file C [facility] Progress note 09-13-2023 Note Date & Type Note Facility 09-13-2023 Note HNO ID: [id number] Author: AUDRA HALL CT Service: Radiology Author Type: Hide Worker Type: Progress Notes Filed: 09/13/2023 11:09 Note Text: Radiology Service Progress Note PATIENT NAME: Meredith Nettles DATE OF SERVICE: September 13, 2023 TIME: 11:08 AM PATIENT IDENTITY VERIFICATION COMPLETED USING TWO (2) IDENTIFIERS: Name and Date of confirmed by patient verbally. FALL SCREENING: Has the patient had 2 falls in the last year or 1 fall with injury or currently using an Ambulatory Assistive Device (Walker, Cane, Wheelchair, Crutches, etc.)? No PATIENT GENDER DATA: Male PATIENT RELEVANT IMPLANT DATA REVIEWED: Not Applicable PATIENT PRESENTS WITH AN IMPLANTABLE OR ATTACHED STRADDLE BUG DRIVER: No RADIOLOGY DEPARTMENT: CT; Exam(s) Completed: Abdomen/Pelvis PERIPHERAL IV DATA: Not applicable SIGNED BY: MURPHY Gonzalez September 13, 2023 11:08 AM [facility] Progress note 09-13-2023 Note Date & Type Note Facility 09-13-2023 Note HNO ID: [id number] Author: AUDRA HALL CT Service: Radiology Author Type: Hide Worker Type: Progress Notes Filed: 09/13/2023 10:35 Note Text: Radiology Service Progress Note PATIENT NAME: Meredith Nettles DATE OF SERVICE: September 13, 2023 TIME: 10:34 AM PATIENT IDENTITY VERIFICATION COMPLETED USING TWO (2) IDENTIFIERS: Name and Date of confirmed by patient verbally. FALL SCREENING: Has the patient had 2 falls in the last year or 1 fall with injury or currently using an Ambulatory Assistive Device (Walker, Cane, Wheelchair, Crutches, etc.)? No PATIENT GENDER DATA: Male PATIENT RELEVANT IMPLANT DATA REVIEWED: Not Applicable PATIENT PRESENTS WITH AN IMPLANTABLE OR ATTACHED STRADDLE BUG DRIVER: No RADIOLOGY DEPARTMENT: CT; Exam(s) Completed: Abdomen/Pelvis PERIPHERAL IV DATA: Not applicable SIGNED BY: MURPHY Gonzalez September 13, 2023 10:34 AM [facility] History of Present illness Narrative 09-13-[address] - 09/13/2023 11:[address] - 09/13/2023 11:20 AM EDT Note Date & Type Note Facility 09-13-2023 History of Presen t illness Narrative Radiology Service Progress Note PATIENT NAME: Meredith Nettles DATE OF SERVICE: September 13, 2023 TIME: 10:34 AM PATIENT IDENTITY VERIFICATION COMPLETED USING TWO (2) IDENTIFIERS: Name and Date of confirmed by patient verbally. FALL SCREENING: Has the patient had 2 falls in the last year or 1 fall with injury or currently using an Ambulatory Assistive Device (Walker, Cane, Wheelchair, Crutches, etc.)? No PATIENT GENDER DATA: Male PATIENT RELEVANT IMPLANT DATA REVIEWED: Not Applicable PATIENT PRESENTS WITH AN IMPLANTABLE OR ATTACHED STRADDLE BUG DRIVER: No RADIOLOGY DEPARTMENT: CT; Exam(s) Completed: Abdomen/Pelvis PERIPHERAL IV DATA: Not applicable SIGNED BY: MURPHY Gonzalez September 13, 2023 10:34 AM Radiology Service Progress Note PATIENT NAME: Meredith Nettles DATE OF SERVICE: September 13, 2023 TIME: 11:08 AM PATIENT IDENTITY VERIFICATION COMPLETED USING TWO (2) IDENTIFIERS: Name and Date of confirmed by patient verbally. FALL SCREENING: Has the patient had 2 falls in the last year or 1 fall with injury or currently using an Ambulatory Assistive Device (Walker, Cane, Wheelchair, Crutches, etc.)? No PATIENT GENDER DATA: Male PATIENT RELEVANT IMPLANT DATA REVIEWED: Not Applicable PATIENT PRESENTS WITH AN IMPLANTABLE OR ATTACHED STRADDLE BUG DRIVER: No RADIOLOGY DEPARTMENT: CT; Exam(s) Completed: Abdomen/Pelvis PERIPHERAL IV DATA: Not applicable SIGNED BY: MURPHY Gonzalez September 13, 2023 11:08 AM documented in this encounter [facility] Discharge instructions 09-12-2022 Note Date & Type Note Facility 09-12-2022 Hospital Discharg e instructions Additional Instructions You have 6 sutures, these need to be out in 10 to 12 days. Keep covered while at work. Decrease movement over the next 48 hours. Return for any sign of redness or infection [facility] Work Phone: Evaluation note Note Date & Type Note Facility Evaluation note No assessment information availa ble [facility] Work Phone: Reason for referral (narrative) Note Date & Type Note Facility Reason for referral (narrative) No reason for referral information available [facility] Work Phone: Reason for visit Narrative Diagnostic Procedure Only (Routine) - Closed Note Date & Type Note Facility Reason for visit Narrative Specialty Diagnoses / Procedures Referred By Carlitos tello Referred To Contact Radiology / RADIO CT SCAN [facility] Diagnoses n20.9 r31.9 AUTH # [id number] SCANNED INTO [employer] ENTERED INTO [employer] Procedures CT ORAL PREP Tye Laguerre DO [address] [place] [address] [facility] [address] [place] [address] Referral ID Status Reason Start Date Expiration Date Visits Re quested Visits Authorized [id number] Closed 09/13/2023 03/08/2024 2 2 [facility] Chief Complaint and Reason for Visit Chief Complaint HYPERGLYCEMIA Chief Complaint THUMB LACERATION Chief Complaint hematuria Family History No Family History Records Found Relationship Condition Age at Onset Recorded Date/T mesha Unknown Family History?Heart Disease, Hypertension Unknown October 18, 2019 6:56pm Family History?Heart Disease, Hypertension Unknown October 18, 2019 6:56pm Relationship Condition Age at Onset Recorded Date/T mesha Unknown Family History?Heart Disease, Hypertension Unknown October 18, 2019 5:56pm Family History?Heart Disease, Hypertension Unknown October 18, 2019 5:56pm Advance Directives No Advanced Directives Records Found Advance Directive Response Recorded Date/ Time Living Will No August 22, 2021 10:29pm Power of Freelance Recruiter No August 22 10:29pm Advance Directive Response Recorded Date/ Time Living Will No August 22, 2021 9:29pm Power of Freelance Recruiter No August 22 9:29pm Advance Directive Response Recorded Date/ Time Living Will No September 12, 2022 7: 35pm Power of Freelance Recruiter No September 12, 2022 7:35pm Advance Directive Response Recorded Date/ Time Living Will No May 03, 2 023 7:17pm Power of Freelance Recruiter No May 03, 2023 7:17pm Advance Directive Response Recorded Date/ Time Living Will No May 03, 2 023 8:17pm Power of Freelance Recruiter No May 03, 2023 8:17pm Summary Purpose Additional Source Comments Goals (unrecognized section and content) Goals may be documented in a n alternate sectionGoals may be documented in an alternate sectionGoals may be documented in an alternate sectionGoals may be documented in an alternate sectionGoals may be documented in an alternate sectionGoals may be documented in an alternate sectionGoals may be documented in an alternate sectionGoals may be documented in an alternate section Care Teams (unrecognized sec tion and content) Team Status: Active Member Role Status Dates Dr. Tye Laguerre , DO Family Provider Active Dr. Tye Laguerre , DO Primary Care Provider Active Team Status: Inactive Member Role Status Dates Pamela Nettles Primary Care Provider Active Dr. Tye Laguerre DO Attending Provider, Referring Kaya guardado Active Team Status: Inactive Member Role Status Dates Dr. Tye Laguerre DO Primary Care Provider Active Dr. Antonio Beal MD Emergency Provider Active Team Status: Inactive Member Role Status Dates Dr. Tye Laguerre DO Primary Care Provider Active Dr. Roselyn Lerma DO Emergency Provider Active Team Status: Inactive Member Role Status Dates Dr. Tye Laguerre DO Primary Care Provider Active Dr. Roselyn Lerma DO Attending Provider, Emergency Pro vider Active Team Status: Inactive Member Role Status Dates Dr. Tye Laguerre DO Primary Care Provider, Attendin g Provider Active Biomechanical Engineer Relationship Specialty Start Date End Date (Hist), No Pcp PCP - General 04/10/17 Biomechanical Engineer Relationship Specialty Start Date End Date (Hist), No Pcp PCP - General 04/10/17 Team Status: Active Member Role/Relationship Status Dates Dr. Tye Laguerre DO Family Provider Active Dr. Tye Laguerre DO Primary Care Provider Active Team Status: Inactive Member Role/Relationship Status Dates Dr. Tye Laguerre DO Primary Care Provider Active Start: January 02, 2025 End: January 02, 2025 Dr. Tye Laguerre DO Attending Provider Active Start: January 02, 2025 End: January 02, 2025 Source Comments (unrecognize d section and content) In the event this informatio n is protected by the Federal Confidentiality of Alcohol and Drug Abuse Patient Records regulations: The Federal rules restrict any use of the information to criminally investigate or prosecute any alcohol or drug abuse patient.[facility] the event this information is protected by the Federal Confidentiality of Alcohol and Drug Abuse Patient Records regulations: The Federal rules restrict any use of the information to criminally investigate or prosecute any alcohol or drug abuse patient.[facility] (unrecognized sect ion and content) No Status Records FoundNo Status Records Found INFORMATION SOURCE (unrecogn ized section and content) DATE CREATED AUTHOR 09/16/2023 [facility] DATE CREATED AUTHOR AUTHOR'S ORGANIZ ATION 01/17/2025 [facility] FOR RECORDS PERTAINING TO PATIENTS WHO ARE OR HAVE BEEN ENROLLED IN A CHEMICAL DEPENDENCY/SUBSTANCEABUSE PROGRAM, SOME INFORMATION MAY BE OMITTED. This clinical summary was aggregated from multiple sources. Caution should be exercised in using it in the provision of clinical care. This summary normalizes information from multiple sources, and as a consequence, information in this document may materially change the coding, format and clinical context of patient data. In addition, data may be omitted in some cases. CLINICAL DECISIONS SHOULD BE BASED ON THE PRIMARY CLINICAL RECORDS. [employer] provides no warranty or guarantee of the accuracy or completeness of information in this document.
== END | disposition home or self-care (01) ==
PROVIDERS: PCP Family Medicine; Referring Provider Family Medicine; Visit Provider Family Medicine
DX: E80.6 Other disorders of bilirubin metabolism (principal)
CPT/HCPCS: 76705